=== PATIENT | male | born 1930 | race Caucasian/White ===

== ENCOUNTER → 2016-11-04 | Outpatient (CLI) | payer MEDICARE ==
[~2016-11-04] MED LIST: ACC200C PO; AMLO5TAB2 PO; ASCO500T20 PO; ASP81TEC PO; CEFP250T2 PO; CHOL200018 PO; CLOP75TA PO; CLOP75TA28 PO; DOXY100C42 PO; HYDR-3583 PO; HYDR-3730 PO; HYDR-3812 PO; HYDR1TAB PO; HYDR1TAB66 PO; ISM60TCR PO; LISI-556 PO; METO-272 PO; METO50TA2 PO; MTP50T PO; MULT-517 PO; MULT-974 PO; OMEG-12 PO; OMG1KC PO; PSYL1WAF3 PO; SIMV10TA3 PO; VITB1TAB PO; WARF4TAB PO; WARF4TAB7 PO; WARF4TAB70 PO; WARF6TAB19 PO; WRF5T PO
--- NOTE | 2016-11-07 07:20 | ECHOCARDIOGRAPHY REPORT ---
DATE OF SERVICE: 11/04/2016 EXAMINATION DATE: 11/04/2016 ATTENDING PHYSICIAN: Dr. Paolo Leach. ORDERING PHYSICIAN: Dr. Paolo Leach. REFERRING PHYSICIAN: Dr. Epps. DIAGNOSIS: Atrial fibrillation, aortic stenosis, cardiomyopathy. FINDINGS: 1. Atrial fibrillation. 2. Left atrial dimensions are enlarged. Left atrial diameter is 4.8 cm. 3. Aortic root dimensions are normal. 4. Left ventricular systolic function is mildly reduced. 5. Left ventricular ejection fraction is 45-50%. 6. No significant LVH is present. 7. There are no significant wall motion abnormalities. 8. There is mild right heart enlargement. There is a pacemaker wire traversing the tricuspid valve into the RV. 9. There is no pericardial effusion. 10. Due to atrial fibrillation, diastolic function was not done. 11. IVC does not appear to collapse. VALVULAR STRUCTURE OF THE HEART: 1. There is moderate pulmonic regurgitation. 2. There seems to be moderate to severe eccentric posteriorly directed mitral regurgitation. 3. Peak velocities are anywhere between 4.72 meters per second to 5.35 meters per second. 4. There is moderate tricuspid regurgitation with RVSP of 19 mmHg. 5. There is mild aortic regurgitation. 6. This patient has history of percutaneous aortic valve. There is mild gradient across the percutaneous valve with max gradient of 9.5 mmHg and mean gradient of 5.12 mmHg. CONCLUSION: 1. Mildly reduced LV systolic function with an EF of 45-50%. 2. There are no wall motion abnormalities. 3. Left atrial enlargement is noted. 4. There is right heart enlargement with a pacemaker lead. 5. IVC is enlarged with diameter of 3 cm which suggests increased right atrial pressure. 6. Moderate to severe mitral regurgitation which is eccentric and posteriorly directed. The eccentric nature of the mitral regurgitation may underestimate the severity of mitral regurgitation. 7. Moderate tricuspid regurgitation with no significant pulmonary hypertension. 8. History of percutaneous aortic valve with no significant gradient across the valve with only mild perivalvular aortic regurgitation. Job ID: [id number] DocumentID: [id number] Dictated Date: 11/05/2016 12:48:20 Continuity Person Date: 11/05/2016 13:33:09 Dictated By: PAOLO LEACH MD
== END ==
LOC: CARD 08:15
PROVIDERS: ATTEND Internal Medicine Interventional Cardiology
DX: I48.91 Unspecified atrial fibrillation (principal); I35.0 Nonrheumatic aortic (valve) stenosis; R55 Syncope and collapse
CPT/HCPCS: 93306

== ENCOUNTER 2016-11-12 09:46 | Outpatient (RCR) | payer MEDICARE ==
[~2016-11-12 09:46] MED LIST changes: +METO-370 PO
[2017-05-22] MEDS ORDERED: LISI2.5T PO (13:44)
[2017-05-22] MEDS ORDERED: ASPI-999 PO (13:44)
[2017-05-22] MEDS ORDERED: AMLO5TAB2 PO (13:44)
[2017-05-22] MEDS ORDERED: ISM60TCR PO (13:44)
[2017-05-22] MEDS ORDERED: SIMV10TA3 PO (13:44)
[2017-05-22] MEDS ORDERED: RIVA20TA PO (13:44)
== END 2017-02-10 | disposition home or self-care (01) ==
LOC: CARD 09:46
PROVIDERS: ATTEND Internal Medicine
DX: R55 Syncope and collapse (principal)
CPT/HCPCS: 93225; 93226

== ENCOUNTER → 2016-12-10 | Outpatient (CLI) | payer MEDICARE ==
[~2016-12-10] MED LIST changes: -METO-370 PO
--- NOTE | 2016-12-11 18:17 | ECHOCARDIOGRAPHY REPORT ---
DATE OF SERVICE: 12/10/2016 TWO DIMENSIONAL ECHOCARDIOGRAM PRIMARY PHYSICIAN: Dr. Edilberto Epps. DIAGNOSES: Atrial fibrillation, aortic stenosis. FINDINGS: 1. Sinus rhythm. 2. Left atrial dimensions are enlarged. Left atrial diameter is 5.2 cm. 3. Aortic root dimensions are normal. 4. Left ventricular systolic function is preserved. Left ventricular ejection fraction is 60%. Mild concentric LVH is present. Diastolic interventricular septal diameter is 1.3 cm. 5. There are no wall motion abnormalities. 6. Right heart size and function is normal. Possible RV lead is noted. 7. There is no evidence of pericardial effusion. 8. Complete diastolic evaluation was not performed. 9. IVC is dilated with a diameter of 2.7 cm. VALVULAR STRUCTURE OF THE HEART: There is mild tricuspid regurgitation. There is mild to moderate mitral regurgitation. There is at least mild pulmonic insufficiency. There is mild aortic insufficiency. The aortic prosthesis is well seated with no aortic stenosis. CONCLUSION: 1. Left ventricular and right ventricular size and function is normal. 2. Left ventricular ejection function is 60%. 3. Aortic prosthesis is well seated with no aortic stenosis. 4. There is mild to moderate mitral regurgitation. 5. IVC is dilated, which may suggest increased right atrial pressure. 6. There is left atrial enlargement and left ventricular hypertrophy. The RV lead is noted in the RV. Job ID: [id number] DocumentID: [id number] Dictated Date: 12/11/2016 14:40:15 Scraper Meat Date: 12/11/2016 15:10:33 Dictated By: JUAN CARLOS SQUIRES MD
== END ==
LOC: CARD 11:54
PROVIDERS: ATTEND Internal Medicine Interventional Cardiology
DX: I48.91 Unspecified atrial fibrillation (principal); I35.0 Nonrheumatic aortic (valve) stenosis; R55 Syncope and collapse
CPT/HCPCS: 93306

== ENCOUNTER 2017-01-12 09:59 | Outpatient (RCR) | payer MEDICARE | END 2017-01-13 | disposition home or self-care (01) | LOC: CR 09:59 | PROVIDERS: ATTEND Internal Medicine | DX: Z09 Encounter for follow-up examination after completed treatment for conditions other than malignant neoplasm (principal); I25.2 Old myocardial infarction; Z95.2 Presence of prosthetic heart valve | CPT/HCPCS: 93798 ==

== ENCOUNTER 2017-02-20 10:25 | Outpatient (RCR) | payer MEDICARE ==
[~2017-02-20 10:25] MED LIST changes: +METO-370 PO
[2017-05-22] MEDS ORDERED: SIMV10TA3 PO (13:44)
[2017-05-22] MEDS ORDERED: ASPI-999 PO (13:44)
[2017-05-22] MEDS ORDERED: RIVA20TA PO (13:44)
[2017-05-22] MEDS ORDERED: ISM60TCR PO (13:44)
[2017-05-22] MEDS ORDERED: AMLO5TAB2 PO (13:44)
[2017-05-22] MEDS ORDERED: LISI2.5T PO (13:44)
== END 2017-02-21 11:00 | disposition home or self-care (01) ==
LOC: CR 10:25
PROVIDERS: ATTEND Internal Medicine
DX: Z09 Encounter for follow-up examination after completed treatment for conditions other than malignant neoplasm (principal); I25.2 Old myocardial infarction; Z95.2 Presence of prosthetic heart valve
CPT/HCPCS: 93798

== ENCOUNTER → 2017-08-11 | Outpatient (CLI) | payer MEDICARE ==
[~2017-08-11] MED LIST changes: +ACHD5005 PO; +ASPI-999 PO; -HYDR-3812 PO; +LISI2.5T PO; +METAMUCIL FIBE1 EACH PO; +METO50TA15 PO; -PSYL1WAF3 PO; +RIVA20TA PO
[2017-08-11 11:49] LABS: ABG BASE EXCESS 0.2 MMOL/L (-2.5-2.5); ABG OXYGEN SATURATION 98 % (94-100); ABG PCO2 35 MMHG (35-45); ABG PH 7.45 (7.37-7.43); ABG PO2 86 MMHG (79-93); ALLENS TEST POSITIVE; PATIENT TEMP 97.3; VENTILATOR NO
== END ==
LOC: LAB 11:10
PROVIDERS: ATTEND Nurse Practitioner Family
DX: G47.33 Obstructive sleep apnea (adult) (pediatric) (principal); R06.81 Apnea, not elsewhere classified
CPT/HCPCS: 82805

== ENCOUNTER 2017-08-17 20:48 | Outpatient (CLI) | payer MEDICARE | END 2017-08-18 06:10 | disposition home or self-care (01) | LOC: SLEEP 20:48 | PROVIDERS: ATTEND Nurse Practitioner Family | DX: G47.33 Obstructive sleep apnea (adult) (pediatric) (principal) | CPT/HCPCS: 95811 ==

== ENCOUNTER → 2017-10-26 | Outpatient (CLI) | payer MEDICARE ==
[~2017-10-26] VITALS: Ht 185.4 cm; Wt 93.4 kg
[~2017-10-26] MED LIST changes: +CATHETER FLUSH 10 ML SYR IV PRN; +REGADENOSON 0.4 MG/5 ML SYR (LEXISCAN) IV ONE
[2017-10-26 12:03] VITALS: BP 135/74
[2017-10-26 12:12] VITALS: BP 148/81
[2017-10-26 13:46] VITALS: BP 144/78
--- NOTE | 2017-10-26 13:46 | Cardiology Stress Test Report ---
Stress Test Report Type of NM Stress Test: Test Type: LEXISCAN 0.4MG/5ML Date of Procedure/Referring: Date of Procedure: Oct 26, 2017 PCP Rui Leach MD Admitting Physician Edilberto Epps DO Indications: recurrent chest pain, previous history of PCI and severe CAD. Baseline Heart Rate: 61 Baseline Blood Pressure: Blood Pressure Systolic: 144 Blood Pressure Diastolic: 78 Baseline EKG: Baseline EKG: Atrial fibrillation with ventricular paced rhythm. Summary: the patient was brought to the stress lab of informed consent was taken. Lexiscan stress test was done according to the protocol. 0.4 mg of IV Lexiscan was given. Low-grade exercise was performed. Baseline EKG showed atrial fibrillation with ventricular paced rhythm. Heart rate was 61 bpm and blood pressure was 144/78 mmHg. Maximum heart rate was 83 bpm and blood pressure was 148/81 mmHg. The patient did not complain of any chest pain, EKG changes or arrhythmias during the stress test. 10.34 mCi of Myoview was given for rest imaging and 32.4 mCi of Myoview was given for stress imaging. Transient ischemic dilatation score is 1.18. EF is 47 percent. Normal wall motion. Small apical fixed defect. Intermediate size apical reversible defect. Intermediate size inferior lateral reversible defect. SSS 9, SRS 4, SDS 5. Conclusion: pharmacological stress test is nonconclusive due to ventricular paced rhythm. Borderline low LV function with no wall motion abnormalities. 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 Possible ischemia in the inferior lateral territory. Coronary angiography is recommended. Rui LEACH MD Oct 26, 2017 1:46 pm
== END ==
LOC: CARD 10:51
PROVIDERS: ATTEND Internal Medicine Interventional Cardiology
DX: I48.91 Unspecified atrial fibrillation (principal); I35.0 Nonrheumatic aortic (valve) stenosis; R07.9 Chest pain, unspecified; R42 Dizziness and giddiness; I25.10 Atherosclerotic heart disease of native coronary artery without angina pectoris
CPT/HCPCS: 78452; 93017

== ENCOUNTER 2017-10-29 08:01 | Day surgery (SDC) | payer MEDICARE ==
[2017-10-29] VITALS (14 sets, daily range): BP systolic 124–159; BP diastolic 70–89
[~2017-10-29] VITALS: Ht 185.4 cm; Wt 93.4 kg
[~2017-10-29 08:01] MED LIST changes: -CATHETER FLUSH 10 ML SYR IV PRN; -REGADENOSON 0.4 MG/5 ML SYR (LEXISCAN) IV ONE
[2017-10-29] MEDS ORDERED: HEParin (CATH LAB) 2,000 ML IV ONE (08:04)
[2017-10-29] MEDS ORDERED: NS IV 1000 ML 1,000 ML ONE (08:04)
[2017-10-29] MEDS ORDERED: NS IV 1000 ML 1,000 ML IV SCH ×2 (08:15→11:33)
[2017-10-29 08:37] LABS: HEMOGLOBIN 13.9 G/DL (13.3-17.7); MEAN PLATELET VOLUME 11.1 FL (7.4-10.4); RED BLOOD COUNT 4.27 10^6/uL (4.35-5.85); RED CELL DISTRIBUTION WIDTH 13.4 % (10.0-14.5); WHITE BLOOD COUNT 4.8 10^3/uL (4.3-11.0)
[2017-10-29 08:48] LABS: INR 2.2 (0.8-1.4); PROTHROMBIN TIME PATIENT 24.2 SEC (12.2-14.7)
[2017-10-29 08:59] LABS: ALANINE AMINOTRANSFERASE 25 U/L (0-55); ALBUMIN 4.3 GM/DL (3.2-4.5); ALKALINE PHOSPHATASE 49 U/L (40-136); BILIRUBIN,TOTAL 1.5 MG/DL (0.1-1.0); BUN/CREATININE RATIO 17; CALCIUM 9.5 MG/DL (8.5-10.1); CARBON DIOXIDE 25 MMOL/L (21-32); CHLORIDE 108 MMOL/L (98-107); GFR ESTIMATED > 60; GLUCOSE 100 MG/DL (70-105); POTASSIUM 3.9 MMOL/L (3.6-5.0); SODIUM 140 MMOL/L (135-145); TOTAL PROTEIN 6.9 GM/DL (6.4-8.2)
[2017-10-29] MEDS ORDERED: fentaNYL INJECTION 100 MCG/2 ML AMP ONE (09:29)
[2017-10-29] MEDS ORDERED: MIDAZOLAM 5 MG/5 ML (VERSED) VIAL ONE (09:29)
[2017-10-29] MEDS ORDERED: LIDOCAINE 1% INJ 50 ML (XYLOCAINE) VIAL ONE (09:29)
[2017-10-29] MEDS ORDERED: VERAPAMIL 5 MG/2 ML (CALAN) VIAL IV ONE (09:29)
[2017-10-29] MEDS ORDERED: NITRO DRIP 25000 MCG/D5W 250 ML IV ONE (09:29)
[2017-10-29] MEDS ORDERED: HEParin 1000 UNIT/ML (10ML VIAL) FOR BOLUS ONE (09:29)
--- NOTE | 2017-10-29 11:20 | Cardiac Procedure Note-CS/ASA ---
Pre-Procedure Note Pre-Op Procedure Note H&P Reviewed The H&P was reviewed, patient examined and no changes noted. Date H&P Reviewed: Oct 29, 2017 Time H&P Reviewed: 09:30 Conscious Sedation Pre-Proced Time Reviewed: 09:30 ASA Class: 3 Airway Mallampati Classification: ([place] ira appropriate class) I. II. III, IV Lungs Heart ASA score ASA 1: a normal healthy patient ASA 2: a patient with a mild systemic disease (mid diabetes, controlled hypertension, obesity ASA 3: a patient with a severe systemic disease that limits activity (angina , COPD, prior Myocardial infarction) ASA 4: a patient with an incapacitating disease that is a constant threat to life (CHF, renal failure) ASA 5: a moribund patient not expected to survive 24 hrs. (ruptured aneurysm) ASA 6: a declared brain patient whose organs are being harvested. For emergent operations, add the letter E after the classification Grade 1 Sedation Plan: Analgesia, Amnesia, Plan communicated to team members, Discussed options with patient/fam, Discussed risks with patient/fam Note The patient is an appropriate candidate to undergo the planned procedure, sedation, and anesthesia. The patient immediately re-assessed prior to indication. Rui SQUIRES MD Oct 29, 2017 11:20 am
--- NOTE | 2017-10-29 11:27 | Coronary Angiography Report ---
Coronary Angiography Report DATE OF PROCEDURE: 10/29/17 INDICATION: recurrent chest pain, abnormal nuclear stress test, previous history of [place] and PCI to RCA. PREOPERATIVE DIAGNOSIS: recurrent chest pain, abnormal nuclear stress test, previous history of WI and PCI to RCA. POSTOPERATIVE DIAGNOSIS: severe disease in the LAD and left circumflex artery. Patent stent in the RCA. HISTORY: this is a 86-year-old gentleman who has a previous history of permanent pacemaker and chronic atrial fibrillation. He is pacemaker dependent. He presented previously in June 2016 with acute WI and was found to have an occluded mid/distal RCA which was treated with a bare metal stent with excellent results. He also had significant mid to distal diffuse LAD disease as well as proximal occlusion of left circumflex artery with reconstitution distally. Patient was also found to have severe aortic stenosis and received a core valve TAVR. He did well for the last one year but recently started to complain of recurrent chest tightness. Due to his history and nuclear stress test was performed which showed evidence of apical infarct and inferior lateral ischemia. Positive viability. Therefore, the patient was scheduled for coronary angiography. PROCEDURES PERFORMED: 1.Coronary angiography. 2. Aortic root injection. 3. Aortic arch angiography COMPLICATIONS: None. SPECIMENS: None. ESTIMATED BLOOD LOSS: 10 mL ANESTHESIA: Conscious sedation ANTICOAGULATION: IV heparin CONTRAST: 135 mL. FLUOROSCOPY: 8.8 minutes. FLOUROSCOPY DOSE: 760 mgy. PROCEDURE DETAILS: The patient is a 86 male and was brought to the quality assurance qa lab analyst after informed consent was taken. All the risks and complications were explained in detail; this included the risk of bleeding, vascular damage, stroke , WI and even . The patient was draped and prepped in the usual sterile fashion. Access was gained in the right radial artery with a 6 [place] sheath. Left coronary angiography was performed with the [place] catheter. Right coronary angiography, arch and root injection was performed with a JR4 catheter. The aortic valve was not crossed (TAVR - corevalve). FINDINGS: 1. Left main: Mild distal disease. 2. LAD: Diffuse disease of the LAD is noted. The LAD is heavily calcified. There is mild to moderate disease in the proximal and midsegment. There is a good size diagonal artery, which has mild diffuse disease but there is no significant stenosis. The distal LAD has severe diffuse disease. The vessel size is less than 1.5 mm diameter. 3. Left circumflex artery: Left circumflex artery is totally occluded in the proximal to mid segment. There is distal reconstitution of at least two OM arteries. However, the diameter is less than 1.5 mm. This could be either due to underfilling or may be the actual size. The left circumflex artery is heavily calcified. 4. RCA: Heavily calcified RCA with patent stent in the mid/RCA with patent branches distally. 5. aortic root injection: Normally functioning Core valve. Patent ostia of RCA and LM. 6. Aortic arch angiography: No evidence of dissection or aneurysm. Patent proximal segments of the great arteries including brachiocephalic artery, left common carotid artery, left subclavian artery. CONCLUSIONS: 1. Patent RCA stent. The RCA and distal branches are similar to the angiogram after PCI in 06/2016. 2. Occluded LCX with distal reconstitution of OM1 and OM2. Supplied by left to left collaterals. LAD was diffuse disease too. Both could be the cause of recurrent chest pain. I will get the opinion about high risk SMELLER PCI to LCX by Dr Dey at . . Edin Squires MD, FACP, FACC, [facility] Interventional Cardiology uRi SQUIRES MD Oct 29, 2017 11:27 am
--- NOTE | 2017-10-29 11:35 | Discharge Inst-Post CATH ---
Discharge Inst-CATH Post Cardiac Cath D/C Inst Follow Up/Plan Dr. Leach in 2-3 weeks CARDIAC CATH DISCHARGE INSTRUCTIONS *Hold Metformin for 48 hours post heart cath. ACTIVITY * Go Home directly and rest. * Limit activity of the leg (or wrist if it was used) for 7 days including aerobics, swimming, jogging, bicycling, etc. * Restrict stair-climbing for 7 days if possible, if not, climb up with your non -cath leg, then bring together on the same step. * Avoid lifting, pushing, pulling or excessive movement of the affected extremity for 7 days. * Customary sexual activity may be resumed after 2 days-use caution not to use a position that strains or causes pain to the affected extremity. * No driving for 24 hours. * NO SMOKING. * Avoid straining for bowel movements for 7 days. * Gentle walking on level ground is allowed. * Returning to work will depend on the type of procedure and the results. Your doctor will discuss this with you. CALL YOUR DOCTOR FOR ANY OF THE FOLLOWING: *If bleeding from the puncture site occurs- Apply gentle pressure to site with clean cloth and call your doctor or EMS. * If a knot or lump forms under the skin, increases in size, or causes pain. * If bruising appears to be worsening or moving further down your leg instead of disappearing. * Temperature above 101 F. CARE OF YOUR GROIN INCISION; * Bruising or purple discoloration of the skin near the puncture site is common. * You may shower only, no bathtub bathing for 5 days. Be careful to avoid slipping as your leg may feel stiff. * If a closure device was used on your femoral artery, please see the attached guide regarding care of the device and your leg. * REMOVE the dressing from your groin the next day after your procedure in the shower. CARE OF YOUR WRIST INCISION; * Bruising or purple discoloration of the skin near the puncture site is common. * You may shower. * DO NOT submerge wrist. * Remove dressing in 24 hours. Rui LEACH MD Oct 29, 2017 11:35 am
--- NOTE | 2017-10-29 11:38 | Cardiology Discharge Summary ---
Diagnosis/Chief Complaint Date of Admission 10/29/2017 Date of Discharge 10/29/2017 Admission Diagnosis recurrent chest pain, abnormal nuclear stress test, previous history of [place] and PCI to the RCA Final/Discharge Diagnosis patent stent in the RCA. Occluded left circumflex artery. Severe diffuse disease in the LAD Chief Complaint/HPI Chief Complaint/HPI this is a 86-year-old gentleman who has a previous history of permanent pacemaker and chronic atrial fibrillation. He is pacemaker dependent. He presented previously in June 2016 with acute [place] and was found to have an occluded mid/distal RCA which was treated with a bare metal stent with excellent results. He also had significant mid to distal diffuse LAD disease as well as proximal occlusion of left circumflex artery with reconstitution distally. Patient was also found to have severe aortic stenosis and received a core valve TAVR. He did well for the last one year but recently started to complain of recurrent chest tightness. Due to his history and nuclear stress test was performed which showed evidence of apical infarct and inferior lateral ischemia. Positive viability. Therefore, the patient was scheduled for coronary angiography. Discharge Summary Procedures coronary angiography shows patent stent in the RCA and patent distal vessels. Occluded proximal and midsegment of the left circumflex artery with reconstitution of 2 OM branches. Left left collaterals. Diffuse severe distal disease in the LAD. Small caliber artery. Discharge Physical Examination normal cardiovascular and respiratory examination. Hospital Course unremarkable. Pending Labs Laboratory Tests 10/29/17 08:30: White Blood Count 4.8, Red Blood Count 4.27, Hemoglobin 13.9, Hematocrit 40, Mean Corpuscular Volume 94, Mean Corpuscular Hemoglobin 33, Mean Corpuscular Hemoglobin Concent 35, Red Cell Distribution Width 13.4, Platelet Count 134, Mean Platelet Volume 11.1, Prothrombin Time 24.2, INR Comment 2.2, Activated Partial Thromboplast Time 40, Sodium Level 140, Potassium Level 3.9, Chloride Level 108, Carbon Dioxide Level 25, Anion Gap 7, Blood Urea Nitrogen 15, Creatinine 0.90, Estimat Glomerular Filtration Rate > 60, BUN/Creatinine Ratio 17, Glucose Level 100, Calcium Level 9.5, Total Bilirubin 1.5, Aspartate Amino Transf (AST/SGOT) 26, Alanine Aminotransferase (ALT/SGPT) 25, Alkaline Phosphatase 49, Total Protein 6.9, Albumin 4.3 Discussion & Recommendations Discussion discharge instructions as to the patient and family. I will discuss coronary angiography results were Dr. Branch at for possible high risk left circumflex artery [employer]ED [employer]ERTIES DIRECTOR PCI. Continue medical therapy. Follow up appt.: Dr. Leach in 2-3 weeks. Dicharge Diet: Cardiac Diet Activity as Tolerated: Yes Home Medications Reviewed patient Home Medication Reconciliation performed by pharmacy medication reconciliations zone maintenance technician and/or nursing. Patients Allergies have been reviewed. Discharge Home Medications: Reviewed and agree with Discharge Medication list on patient's Discharge Instruction sheet Condition at discharge stable. Instructions to patient/family Dr. Leach in 2-3 weeks Rui LEACH MD Oct 29, 2017 11:38
[2017-10-29] MEDS ORDERED: PATIENT MAY USE OWN MEDS, ALL PO SCH (11:45)
--- OUTSIDE RECORDS SUMMARY | 2017-10-29 13:00 | XMS REPORT | Continuity of Care Document ---
Author Author [facility] Organization [facility] Address Unknown Phone Unavailable Allergies Active Description Code Type Severity Reaction Onset Reported/Identified Relationship to Patient Clinical Status Yes No Known Drug Allergies [id number] Drug Allergy Unknown N/A 04/12/2010 Medications There is no data. Problems Date Dx Coded Attending Type Code Diagnosis Diagnosed By 06/18/1099 LUIS M GEORGES DO, Ot I25.2 OLD MYOCARDIAL INFARCTION 06/18/1099 LUIS M GEORGES DO Ot Z09 ENCNTR FOR F/U EXAM AFT TRTMT FOR COND O 06/18/1099 LUIS M GEORGES DO Ot Z95.2 PRESENCE OF PROSTHETIC HEART VALVE 01/31/2012 Ot 709.9 SKIN DISORDER NOS 01/31/2012 Ot V58.63 LONG-TERM( CURRENT)USE OF ANTIPLATELET/AN 10/02/2012 Ot 592.1 CALCULUS OF URETER 10/02/2012 Ot 789.09 ABDOMINAL PAIN, OTHER SPECIFIED SITE 10/02/2012 Ot V58.61 ANTICOAGULANTS,LT,CURRENT USE 10/02/2012 Ot V58.69 OTH MED,LT, CURRENT USE 10/07/2012 Ot 272.4 HYPERLIPIDEMIA NEC/NOS 10/07/2012 Ot 401.9 HYPERTENSION NOS 10/07/2012 Ot 414.01 CORONARY ATHEROSCLEROSIS OF [place] CORON 10/07/2012 Ot 564.00 UNSPEC CONSTIPATION 10/07/2012 Ot 591 HYDRONEPHROSIS 10/07/2012 Ot 592.1 CALCULUS OF URETER 10/07/2012 Ot 722.52 LUMB/ LUMBOSAC DISC DEGEN 10/07/2012 Ot V45.01 CARDIAC PACEMAKER IN SITU 02/22/2014 TAWANNA GUILLORY, MARIELOS Fabian Ot 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 02/22/2014 TAWANNA GUILLORY, MARIELOS Fabian Ot 455.3 EXT HEMORRHOID W/O COMPL 02/22/2014 TAWANNA GUILLORY, MARIELOS Fabian Ot 562.10 DIVERTICULOSIS COLON (W/O MENT OF HEMORR 02/22/2014 TAWANNA GUILLORY, MARIELOS Fabian Ot 569.3 RECTAL ANAL HEMORRHAGE 02/22/2014 TAWANNA GUILLORY, MARIELOS Fabian Ot V12.72 PERSONAL HISTORY OF COLONIC POLYPS 08/18/2014 LUIS M GEORGES DO Ot 724.00 09/12/2014 LUIS M GEORGES DO Ot 724.00 09/14/2014 LUIS M GEORGES DO Ot 724.00 12/25/2014 LUIS M GEORGES DO Ot 054.9 HERPES SIMPLEX NOS 12/25/2014 LUIS M GEORGES DO Ot 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 12/25/2014 LUIS M GEORGES DO Ot 272.4 HYPERLIPIDEMIA NEC/NOS 12/25/2014 LUIS M GEORGES DO Ot 287.5 THROMBOCYTOPENIA NOS 12/25/2014 LUIS M GEORGES DO Ot 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 12/25/2014 LUIS M GEORGES DO Ot 401.9 HYPERTENSION NOS 12/25/2014 LUIS M GEORGES DO Ot 414.01 CORONARY ATHEROSCLEROSIS OF [place] CORON 12/25/2014 LUIS M GEORGES DO Ot 427.31 ATRIAL FIBRILLATION 12/25/2014 LUIS M GEORGES DO Ot 427.81 SINOATRIAL NODE DYSFUNCT 12/25/2014 LUIS M GEORGES DO Ot 682.6 CELLULITIS OF LEG 12/25/2014 LUIS M GEORGES DO Ot 721.3 LUMBOSACRAL SPONDYLOSIS 12/25/2014 LUIS M GEORGES DO Ot V10.46 HX-PROSTATIC MALIGNANCY 12/25/2014 LUIS M GEORGES DO, Ot V45.01 CARDIAC PACEMAKER IN SITU 12/25/2014 LUIS M GEORGES DO, Ot V58.61 ANTICOAGULANTS,LT,CURRENT USE 12/26/2014 ARSENIO GEORGES MECHANICAL PLANNER Ot 729.1 12/26/2014 ARSENIO GEORGES MECHANICAL PLANNER Ot 729.5 12/26/2014 ARSENIO GEORGES MECHANICAL PLANNER Ot 780.60 12/26/2014 ARSENIO GEORGES MECHANICAL PLANNER Ot 919.4 12/26/2014 ARSENIO GEORGES MECHANICAL PLANNER Ot E000.8 12/26/2014 ARSENIO GEORGES MECHANICAL PLANNER Ot E906.4 01/12/2015 DESTINIARSENIO MECHANICAL PLANNER Ot 729.1 01/12/2015 DESTINI ARSENIO More MECHANICAL PLANNER Ot 729.5 01/12/2015 DESTINI ARSENIO More MECHANICAL PLANNER Ot 780.60 01/12/2015 DESTINI ARSENIO More MECHANICAL PLANNER Ot 919.4 01/12/2015 DESTINI ARSENIO More MECHANICAL PLANNER Ot E000.8 01/12/2015 DESTINI ARSENIO More MECHANICAL PLANNER Ot E906.4 01/23/2015 DESTINI ARSENIO More MECHANICAL PLANNER Ot 729.1 01/23/2015 DESTINI ARSENIO More MECHANICAL PLANNER Ot 729.5 01/23/2015 DESTINI ARSENIO More MECHANICAL PLANNER Ot 780.60 01/23/2015 DESTINI ARSENIO More MECHANICAL PLANNER Ot 919.4 01/23/2015 DESTINI ARSENIO More MECHANICAL PLANNER Ot E000.8 01/23/2015 DESTINI ARSENIO More MECHANICAL PLANNER Ot E906.4 03/08/2015 LUIS M GEORGES DO Ot 327.23 OBSTRUCTIVE SLEEP APNEA (ADULT) (PEDIATR 08/17/2015 LUIS M GEORGES DO Ot S30.0XXA 08/17/2015 GEORGESLUIS M GONZALES DO Ot W19.XXXA 08/17/2015 GEORGESLUIS M GONZALES DO Ot Y99.8 09/04/2015 GEORGESLUIS M GONZALES DO Ot S39.92XA 09/04/2015 GEORGESLUIS M GONZALES DO Ot W00.9XXA 09/04/2015 GEORGES LUIS M SEXTON Ot Y99.8 09/04/2015 GEORGESLUIS M GONZALES DO Ot S30.0XXA 09/04/2015 GEORGESLUIS M GONAZLES DO Ot W19.XXXA 09/04/2015 GEORGESLUIS M GONZALES DO Ot Y99.8 09/14/2015 GEORGESLUIS M GONZALES DO Ot S39.92XA 09/14/2015 GEORGESLUIS M GONZALES DO Ot W00.9XXA 09/14/2015 LUIS M GEORGES DO Ot Y99.8 09/14/2015 GEORGESLUIS M GONZALES DO Ot S30.0XXA 09/14/2015 DESTINI SEXTON LUIS M Elle Ot W19.XXXA 09/14/2015 GEORGES DO LUIS M Almeida Ot Y99.8 11/01/2015 GEORGES DO, LUIS M Almeida Ot R22.1 11/01/2015 GEORGES DO LUIS M Alemida Ot R22.1 11/21/2015 DESTINI SEXTON LUIS M Almeida Ot R22.1 LOCALIZED SWELLING, MASS AND LUMP, NECK 11/28/2015 DESTINI SEXTON LUIS M Elle Ot R22.1 LOCALIZED SWELLING, MASS AND LUMP, NECK 12/03/2015 PHU MATHUR MD, Ot R22.1 LOCALIZED SWELLING, MASS AND LUMP, NECK 12/03/2015 PHU MATHUR MD, Ot Z01.818 ENCOUNTER FOR OTHER PREPROCEDURAL EXAMIN 12/03/2015 PHU MATHUR MD, Ot Z11.2 ENCOUNTER FOR SCREENING FOR OTHER BACTER 12/06/2015 PHU MATHUR MD Ot I48.91 UNSPECIFIED ATRIAL FIBRILLATION 12/06/2015 PHU MATHUR MD Ot K11.23 CHRONIC SIALOADENITIS 12/06/2015 PHU MATHUR MD Ot Z79.01 SENIOR CARE (CURRENT) USE OF ANTICOAGULANT 12/11/2015 PHU MATHUR MD Ot I48.91 UNSPECIFIED ATRIAL FIBRILLATION 12/11/2015 PHU MATHUR MD Ot K11.23 CHRONIC SIALOADENITIS 12/11/2015 PHU MATHUR MD Ot Z79.01 COST CONTROL ANALYST (CURRENT) USE OF ANTICOAGULANT 12/11/2015 PHU MATHUR MD Ot I48.91 UNSPECIFIED ATRIAL FIBRILLATION 12/11/2015 PHU MATHUR MD Ot K11.23 CHRONIC SIALOADENITIS 12/11/2015 PHU MATHUR MD Ot Z79.01 COST CONTROL ANALYST (CURRENT) USE OF ANTICOAGULANT 12/21/2015 PHU MATHUR MD Ot I48.91 UNSPECIFIED ATRIAL FIBRILLATION 12/21/2015 PHU MATHUR MD, Ot K11.23 CHRONIC SIALOADENITIS 12/21/2015 PHU MATHUR MD Ot Z79.01 SENIOR CARE (CURRENT) USE OF ANTICOAGULANT 07/05/2016 Ot 592.1 CALCULUS OF URETER 07/05/2016 GEORGES, ARSENIO L MECHANICAL PLANNER Ot 719.07 JOINT EFFUSION-ANKLE 07/05/2016 GEORGESARSENIO GONZALES MECHANICAL PLANNER Ot 719.47 JOINT PAIN-ANKLE 07/05/2016 ARSENIO GEORGES MECHANICAL PLANNER Ot E000.8 OTHER EXTERNAL CAUSE STATUS 07/05/2016 ARSENIO GEORGES MECHANICAL PLANNER Ot E849.0 ACCIDENT IN HOME 07/05/2016 GEORGESARSENIO GONZALES MECHANICAL PLANNER Ot E927.0 OVEREXERTION FROM SUDDEN STRENUOUS MOVEM 07/05/2016 TAWANNA GUILLORY, MARIELOS Fabian Ot V72.84 EXAM PRE-OPERATIVE NOS 07/05/2016 LUIS M GEORGES DO Ot 724.00 SPINAL STENOSIS NOS 07/05/2016 DESTINI ARSENIO Derik MECHANICAL PLANNER Ot 729.1 MYALGIA AND MYOSITIS NOS 07/05/2016 DESTINIARSENIO Derik MECHANICAL PLANNER Ot 729.5 PAIN IN LIMB 07/05/2016 DESTINIARSENIO MECHANICAL PLANNER Ot 780.60 FEVER, UNSPECIFIED 07/05/2016 DESTINIAIDAARSENIO Derik MECHANICAL PLANNER Ot 919.4 INSECT BITE NEC 07/05/2016 DESTINIARSENIO Derik MECHANICAL PLANNER Ot E000.8 OTHER EXTERNAL CAUSE STATUS 07/05/2016 DESTINIARSENIO MECHANICAL PLANNER Ot E906.4 NONVENOM ARTHROPOD BITE 07/05/2016 LUIS M GEORGES DO Ot S39.92XA UNSPECIFIED INJURY OF LOWER BACK, INITIA 07/05/2016 LUIS M GEORGES DO Ot W00.9XXA UNSPECIFIED FALL DUE TO ICE AND SNOW, IN 07/05/2016 LUIS M GEORGES DO Ot Y99.8 OTHER EXTERNAL CAUSE STATUS 07/05/2016 LUIS M GEORGES DO Ot S30.0XXA CONTUSION OF LOWER BACK AND PELVIS, INIT 07/05/2016 LUIS M GEORGES DO Ot W19.XXXA UNSPECIFIED FALL, INITIAL ENCOUNTER 07/05/2016 LUIS M GEORGES DO Ot Y99.8 OTHER EXTERNAL CAUSE STATUS 07/05/2016 LUIS M GEORGES DO Ot R22.1 LOCALIZED SWELLING, MASS AND LUMP, NECK 07/05/2016 CHRISTIANA ALTAMIRANO DO, Ot C61 MALIGNANT NEOPLASM OF PROSTATE 07/05/2016 ADARSH DO, CHRISTIANA K Ot I10 ESSENTIAL (PRIMARY) HYPERTENSION 07/05/2016 CHRISTIANA ALTAMIRANO DO K Ot I25.10 ATHSCL HEART DISEASE OF [place] CORONARY 07/05/2016 CHRISTIANA ALTAMIRANO DO Ot I48.2 CHRONIC ATRIAL FIBRILLATION 07/05/2016 CHRISTIANA ALTAMIRANO DO Ot R31.9 HEMATURIA, UNSPECIFIED 07/05/2016 CHRISTIANA ALTAMIRANO DO Ot T83.098A [facility] COMPL OF OTHER URINARY CATHETER, IN 07/05/2016 CHRISTIANA ALTAMIRANO DO K Ot Z79.82 COST CONTROL ANALYST (CURRENT) USE OF ASPIRIN 07/05/2016 MIYA ALTAMIRANO DOA K Ot Z79.899 OTHER COST CONTROL ANALYST (CURRENT) DRUG THERAPY 07/05/2016 CHRISTIANA ALTAMIRANO DO K Ot Z95.0 PRESENCE OF CARDIAC PACEMAKER 07/05/2016 MIYA ALTAMIRANO DOA K Ot Z95.5 PRESENCE OF CORONARY ANGIOPLASTY IMPLANT 07/17/2016 CHRISTIANA ALTAMIRANO DO K Ot I10 ESSENTIAL (PRIMARY) HYPERTENSION 07/17/2016 CHRISTIANA ALTAMIRANO DO Ot R06.02 SHORTNESS OF BREATH 07/17/2016 CHRISTIANA ALTAMIRANO DO K Ot R07.9 CHEST PAIN, UNSPECIFIED 07/17/2016 CHRISTIANA ALTAMIRANO DO Ot R61 GENERALIZED HYPERHIDROSIS 07/17/2016 CHRISTIANA ALTAMIRANO DO Ot Z79.01 SENIOR CARE (CURRENT) USE OF ANTICOAGULANT 07/17/2016 MIYA ALTAMIRANO DOA K Ot Z79.82 SENIOR CARE (CURRENT) USE OF ASPIRIN 07/17/2016 MIYA ALTAMIRANO DOA K Ot Z79.899 OTHER SENIOR CARE (CURRENT) DRUG THERAPY 07/17/2016 MIYA ALTAMIRANO DOA K Ot Z95.0 PRESENCE OF CARDIAC PACEMAKER 07/18/2016 SHAW GUILLORY, Rui ZAMORANO Ot 111 07/18/2016 SHAW GUILLORY, Rui ZAMORANO Ot 111 07/18/2016 SHAW GUILLORY, Rui ZAMORANO Ot 111 07/19/2016 SHAW GUILLORY, Rui ZAMORANO Ot 111 07/19/2016 SHAW GUILLORY, Rui ZAMORANO Ot 111 07/19/2016 SHAW GUILLORY, Rui ZAMORANO Ot I21.3 ST ELEVATION (STEMI) MYOCARDIAL INFARCTI 07/19/2016 SHAW GUILLORY, Rui ZAMORANO Ot I25.10 ATHSCL HEART DISEASE OF [place] CORONARY 07/19/2016 SHAW GUILLORY, Rui ZAMORANO Ot I35.0 NONRHEUMATIC AORTIC (VALVE) STENOSIS 07/19/2016 SHAW GUILLORY, Rui ZAMORANO Ot I48.1 PERSISTENT ATRIAL FIBRILLATION 07/19/2016 SHAW GUILLORY, Rui ZAMORANO Ot Z87.891 PERSONAL HISTORY OF NICOTINE DEPENDENCE 07/28/2016 ADARSH DO CHRISTIANA K Ot C61 MALIGNANT NEOPLASM OF PROSTATE 07/28/2016 ADARSH DO CHRISTIANA K Ot I10 ESSENTIAL (PRIMARY) HYPERTENSION 07/28/2016 ADARSH CHRISTIANA K Ot I25.10 ATHSCL HEART DISEASE OF [place] CORONARY 07/28/2016 ADARSH DO CHRISTIANA K Ot I48.2 CHRONIC ATRIAL FIBRILLATION 07/28/2016 ADARSH DO CHRISTIANA K Ot R31.9 HEMATURIA, UNSPECIFIED 07/28/2016 ADARSH DO CHRISTIANA K Ot T83.098A [facility] COMPL OF OTHER URINARY CATHETER, [place] 07/28/2016 ADARSH DO CHRISTIANA K Ot Z79.82 COST CONTROL ANALYST (CURRENT) USE OF ASPIRIN 07/28/2016 ADARSH DO CHRISTIANA K Ot Z79.899 OTHER COST CONTROL ANALYST (CURRENT) DRUG THERAPY 07/28/2016 ADARSH DO CHRISTIANA K Ot Z95.0 PRESENCE OF CARDIAC PACEMAKER 07/28/2016 ADARSH DO CHRISTIANA K Ot Z95.5 PRESENCE OF CORONARY ANGIOPLASTY IMPLANT 07/31/2016 ADARSH DO CHRISTIANA K Ot I10 ESSENTIAL (PRIMARY) HYPERTENSION 07/31/2016 ADARSH DO CHRISTIANA K Ot R06.02 SHORTNESS OF BREATH 07/31/2016 ADARSH DO CHRISTIANA K Ot R07.9 CHEST PAIN, UNSPECIFIED 07/31/2016 ADARSH DO CHRISTIANA K Ot R61 GENERALIZED HYPERHIDROSIS 07/31/2016 ADARSH DO CHRISTIANA K Ot Z79.01 SENIOR CARE (CURRENT) USE OF ANTICOAGULANT 07/31/2016 ADARSH DO CHRISTIANA K Ot Z79.82 SENIOR CARE (CURRENT) USE OF ASPIRIN 07/31/2016 ADARSH DO CHRISTIANA K Ot Z79.899 OTHER SENIOR CARE (CURRENT) DRUG THERAPY 07/31/2016 ADARSH DO CHRISTIANA K Ot Z95.0 PRESENCE OF CARDIAC PACEMAKER 07/31/2016 ADARSH DO, CHRISTIANA K Ot I10 ESSENTIAL (PRIMARY) HYPERTENSION 07/31/2016 ADARSH DO, CHRISTIANA K Ot R06.02 SHORTNESS OF BREATH 07/31/2016 ADARSH DO, CHRISTIAAN K Ot R07.9 CHEST PAIN, UNSPECIFIED 07/31/2016 ADARSH DO, CHRISTIANA K Ot R61 GENERALIZED HYPERHIDROSIS 07/31/2016 ADASRH DO, CHRISTIANA K Ot Z79.01 SENIOR CARE (CURRENT) USE OF ANTICOAGULANT 07/31/2016 ADARSH DO, CHRISTIANA K Ot Z79.82 COST CONTROL ANALYST (CURRENT) USE OF ASPIRIN 07/31/2016 ADARSH DO, CHRISTIANA K Ot Z79.899 OTHER SENIOR CARE (CURRENT) DRUG THERAPY 07/31/2016 ADARSH DO, CHRISTIANA K Ot Z95.0 PRESENCE OF CARDIAC PACEMAKER 08/02/2016 ADARSH DO, CHRISTIANA K Ot I10 ESSENTIAL (PRIMARY) HYPERTENSION 08/02/2016 ADARSH DO, CHRISTIANA K Ot R06.02 SHORTNESS OF BREATH 08/02/2016 ADARSH DO, CHRISTIANA K Ot R07.9 CHEST PAIN, UNSPECIFIED 08/02/2016 ADARSH DO, CHRISTIANA K Ot R61 GENERALIZED HYPERHIDROSIS 08/02/2016 ADARSH DO, CHRISTIANA K Ot Z79.01 SENIOR CARE (CURRENT) USE OF ANTICOAGULANT 08/02/2016 ADARSH DO, CHRISTIANA K Ot Z79.82 COST CONTROL ANALYST (CURRENT) USE OF ASPIRIN 08/02/2016 ADARSH DO, CHRISTIANA K Ot Z79.899 OTHER COST CONTROL ANALYST (CURRENT) DRUG THERAPY 08/02/2016 ADARSH DO, CHRISTIANA K Ot Z95.0 PRESENCE OF CARDIAC PACEMAKER 09/17/2016 ADARSH DO, CHRISTIANA K Ot I10 ESSENTIAL (PRIMARY) HYPERTENSION 09/17/2016 ADARSH DO, CHRISTIANA K Ot R06.02 SHORTNESS OF BREATH 09/17/2016 ADARSH DO, CHRISTIANA K Ot R07.9 CHEST PAIN, UNSPECIFIED 09/17/2016 ADARSH DO, CHRISTIANA K Ot R61 GENERALIZED HYPERHIDROSIS 09/17/2016 ADARSH DO, CHRISTIANA K Ot Z79.01 COST CONTROL ANALYST (CURRENT) USE OF ANTICOAGULANT 09/17/2016 ADARSH DO, CHRISTIANA K Ot Z79.82 SENIOR CARE (CURRENT) USE OF ASPIRIN 09/17/2016 ADARSH SEXTON CHRISTIANA Alex Ot Z79.899 OTHER SENIOR CARE (CURRENT) DRUG THERAPY 09/17/2016 CHRISTIANA ALTAMIRANO DO Ot Z95.0 PRESENCE OF CARDIAC PACEMAKER 10/16/2016 LUIS M GEORGES DO, Ot I25.2 OLD MYOCARDIAL INFARCTION 10/16/2016 LUIS M GEORGES DO Ot Z09 ENCNTR FOR F/U EXAM AFT TRTMT FOR COND O 10/16/2016 LUIS M GEORGES DO Ot Z95.2 PRESENCE OF PROSTHETIC HEART VALVE 10/18/2016 ADARSH DO CHRISTIANA K Ot I10 ESSENTIAL (PRIMARY) HYPERTENSION 10/18/2016 ADARSH DOMIYAA K Ot R06.02 SHORTNESS OF BREATH 10/18/2016 ADARSH DO CHRISTIANA K Ot R07.9 CHEST PAIN, UNSPECIFIED 10/18/2016 ADARSH DO CHRISTIANA K Ot R61 GENERALIZED HYPERHIDROSIS 10/18/2016 ADARSH DOCHRISTIANA Ot Z79.01 COST CONTROL ANALYST (CURRENT) USE OF ANTICOAGULANT 10/18/2016 ADARSH DO CHRISTIANA K Ot Z79.82 SENIOR CARE (CURRENT) USE OF ASPIRIN 10/18/2016 ADARSH DO CHRISTIANA K Ot Z79.899 OTHER SENIOR CARE (CURRENT) DRUG THERAPY 10/18/2016 ADARSH SEXTON CHRISTIANA Alex Ot Z95.0 PRESENCE OF CARDIAC PACEMAKER 11/11/2016 LUIS M GEORGES DO Ot I25.2 OLD MYOCARDIAL INFARCTION 11/11/2016 LUIS M GEORGES DO Ot Z09 ENCNTR FOR F/U EXAM AFT TRTMT FOR COND O 11/11/2016 LUIS M GEORGES DO Ot Z95.2 PRESENCE OF PROSTHETIC HEART VALVE 11/17/2016 ADARSH DO CHRISTIANA K Ot I10 ESSENTIAL (PRIMARY) HYPERTENSION 11/17/2016 ADARSH DOMIYAA K Ot R06.02 SHORTNESS OF BREATH 11/17/2016 ADARSH DO CHRISTIANA K Ot R07.9 CHEST PAIN, UNSPECIFIED 11/17/2016 ADARSH DO CHRISTIANA K Ot R61 GENERALIZED HYPERHIDROSIS 11/17/2016 ADARSH DO CHRISTIANA K Ot Z79.01 SENIOR CARE (CURRENT) USE OF ANTICOAGULANT 11/17/2016 ADARSH DO CHRISTIANA K Ot Z79.82 SENIOR CARE (CURRENT) USE OF ASPIRIN 11/17/2016 CHRISTIANA ALTAMIRANO DO Ot Z79.899 OTHER SENIOR CARE (CURRENT) DRUG THERAPY 11/17/2016 ADARSH CHRISTIANA Ot Z95.0 PRESENCE OF CARDIAC PACEMAKER 11/19/2016 LUIS M GEORGES DO, Ot I25.2 OLD MYOCARDIAL INFARCTION 11/19/2016 LUIS M GEORGES DO, Ot Z09 ENCNTR FOR F/U EXAM AFT TRTMT FOR COND O 11/19/2016 LUIS M GEORGES DO, Ot Z95.2 PRESENCE OF PROSTHETIC HEART VALVE 12/01/2016 Rui SQUIRES MD Ot I35.0 NONRHEUMATIC AORTIC (VALVE) STENOSIS 12/01/2016 Rui SQUIRES MD Ot I48.91 UNSPECIFIED ATRIAL FIBRILLATION 12/01/2016 Rui SQUIRES MD Ot R55 SYNCOPE AND COLLAPSE 12/04/2016 Rui SQUIRES MD Ot I35.0 NONRHEUMATIC AORTIC (VALVE) STENOSIS 12/04/2016 Rui SQUIRES MD Ot I48.91 UNSPECIFIED ATRIAL FIBRILLATION 12/04/2016 Rui SQUIRES MD Ot R55 SYNCOPE AND COLLAPSE 12/10/2016 LUIS M GEORGES DO, Ot R55 SYNCOPE AND COLLAPSE 12/16/2016 Rui SQUIRES MD Ot I35.0 NONRHEUMATIC AORTIC (VALVE) STENOSIS 12/16/2016 Rui SQUIRES MD Ot I48.91 UNSPECIFIED ATRIAL FIBRILLATION 12/16/2016 Rui SQUIRES MD Ot R55 SYNCOPE AND COLLAPSE 12/17/2016 LUIS M GEORGES DO, Ot R55 SYNCOPE AND COLLAPSE 12/19/2016 Rui SQUIRES MD Ot I35.0 NONRHEUMATIC AORTIC (VALVE) STENOSIS 12/19/2016 Rui SQUIRES MD Ot I48.91 UNSPECIFIED ATRIAL FIBRILLATION 12/19/2016 Rui SQUIRES MD Ot R55 SYNCOPE AND COLLAPSE 12/19/2016 Rui SQUIRES MD Ot I35.0 NONRHEUMATIC AORTIC (VALVE) STENOSIS 12/19/2016 Rui SQUIRES MD Ot I48.91 UNSPECIFIED ATRIAL FIBRILLATION 12/19/2016 Rui SQUIRES MD Ot R55 SYNCOPE AND COLLAPSE 12/19/2016 Rui SQUIRES MD Ot I35.0 NONRHEUMATIC AORTIC (VALVE) STENOSIS 12/19/2016 Rui SQUIRES MD Ot I48.91 UNSPECIFIED ATRIAL FIBRILLATION 12/19/2016 Rui SQUIRES MD Ot R55 SYNCOPE AND COLLAPSE 12/19/2016 Rui SQUIRES MD Ot I35.0 NONRHEUMATIC AORTIC (VALVE) STENOSIS 12/19/2016 Rui SQUIRES MD Ot I48.91 UNSPECIFIED ATRIAL FIBRILLATION 12/19/2016 Rui SQUIRES MD Ot R55 SYNCOPE AND COLLAPSE 12/31/2016 Rui SQUIRES MD Ot I35.0 NONRHEUMATIC AORTIC (VALVE) STENOSIS 12/31/2016 Rui SQUIRES MD Ot I48.91 UNSPECIFIED ATRIAL FIBRILLATION 12/31/2016 Rui SQUIRES MD Ot R55 SYNCOPE AND COLLAPSE 01/08/2017 Rui SQUIRES MD Ot I35.0 NONRHEUMATIC AORTIC (VALVE) STENOSIS 01/08/2017 Rui SQUIRES MD Ot I48.91 UNSPECIFIED ATRIAL FIBRILLATION 01/08/2017 Rui SQUIRES MD Ot R55 SYNCOPE AND COLLAPSE 01/12/2017 LUIS M GEORGES DO Ot I25.2 OLD MYOCARDIAL INFARCTION 01/12/2017 LUIS M GEORGES DO Ot Z09 ENCNTR FOR F/U EXAM AFT TRTMT FOR COND O 01/12/2017 LUIS M GEORGES DO Ot Z95.2 PRESENCE OF PROSTHETIC HEART VALVE 01/13/2017 LUIS M GEORGES DO Ot I25.2 OLD MYOCARDIAL INFARCTION 01/13/2017 LUIS M GEORGES DO, Ot Z09 ENCNTR FOR F/U EXAM AFT TRTMT FOR COND O 01/13/2017 LUIS M GEORGES DO Ot Z95.2 PRESENCE OF PROSTHETIC HEART VALVE 01/13/2017 LUIS M GEORGES DO Ot I25.2 OLD MYOCARDIAL INFARCTION 01/13/2017 LUIS M GEORGES DO, Ot Z09 ENCNTR FOR F/U EXAM AFT TRTMT FOR COND O 01/13/2017 GEORGESLUIS M OLIVIA DO Ot Z95.2 PRESENCE OF PROSTHETIC HEART VALVE 01/14/2017 GEORGESLUIS M OLIVIA DO Ot I25.2 OLD MYOCARDIAL INFARCTION 01/14/2017 GEORGES LUIS M SEXTON Ot Z09 ENCNTR FOR F/U EXAM AFT TRTMT FOR COND O 01/14/2017 GEORGES LUIS M SEXTON Ot Z95.2 PRESENCE OF PROSTHETIC HEART VALVE 01/22/2017 GEORGESLUIS M OLIVIA DO Ot 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 MYOCARDIAL INFARCTION 01/22/2017 GEORGESLUIS M OLIVIA DO Ot Z09 ENCNTR FOR F/U EXAM AFT TRTMT FOR COND O 01/22/2017 GEORGES DO LUIS M Elle Ot Z95.2 PRESENCE OF PROSTHETIC HEART VALVE 02/10/2017 LUIS M GEORGES DO Ot R55 SYNCOPE AND COLLAPSE 02/13/2017 LUIS M GEORGES DO Ot I25.2 OLD MYOCARDIAL INFARCTION 02/13/2017 LUIS M GEORGES DO Ot Z09 ENCNTR FOR F/U EXAM AFT TRTMT FOR COND O 02/13/2017 GEORGESLUIS M OLIVIA DO Ot Z95.2 PRESENCE OF PROSTHETIC HEART VALVE 02/20/2017 LUIS M GEORGES DO Ot I25.2 OLD MYOCARDIAL INFARCTION 02/20/2017 LUIS M GEORGES DO Ot Z09 ENCNTR FOR F/U EXAM AFT TRTMT FOR COND O 02/20/2017 LUIS M GEORGES DO Ot Z95.2 PRESENCE OF PROSTHETIC HEART VALVE 02/21/2017 LUIS M GEORGES DO Ot I25.2 OLD MYOCARDIAL INFARCTION 02/21/2017 LUIS M GEORGES DO Ot Z09 ENCNTR FOR F/U EXAM AFT TRTMT FOR COND O 02/21/2017 LUIS M GEORGES DO Ot Z95.2 PRESENCE OF PROSTHETIC HEART VALVE 05/22/2017 PHU MATHUR MD Ot K62.5 HEMORRHAGE OF ANUS AND RECTUM 05/22/2017 PHU MATHUR MD Ot Z01.818 ENCOUNTER FOR OTHER PREPROCEDURAL EXAMIN 05/27/2017 PHU MATHUR MD Ot E78.00 PURE HYPERCHOLESTEROLEMIA, UNSPECIFIED 05/27/2017 PHU MATHUR MD, Ot G47.33 OBSTRUCTIVE SLEEP APNEA (ADULT) (PEDIATR 05/27/2017 PHU MATHUR MD Ot I10 ESSENTIAL (PRIMARY) HYPERTENSION 05/27/2017 PHU MATHUR MD Ot I25.10 ATHSCL HEART DISEASE OF [place] CORONARY 05/27/2017 PHU MATHUR MD, Ot I25.2 OLD MYOCARDIAL INFARCTION 05/27/2017 PHU MATHUR MD Ot I48.91 UNSPECIFIED ATRIAL FIBRILLATION 05/27/2017 PHU MATHUR MD, Ot K57.30 DVRTCLOS OF LG INT W/O PERFORATION OR AB 05/27/2017 PHU MATHUR MD, Ot K62.5 HEMORRHAGE OF ANUS AND RECTUM 05/27/2017 PHU MATHUR MD, Ot K64.0 FIRST DEGREE HEMORRHOIDS 05/27/2017 PHU MATHUR MD Ot Z79.01 SENIOR CARE (CURRENT) USE OF ANTICOAGULANT 05/27/2017 PHU MATHUR MD, Ot Z79.82 SENIOR CARE (CURRENT) USE OF ASPIRIN 05/27/2017 PHU MATHUR MD Ot Z85.46 PERSONAL HISTORY OF MALIGNANT NEOPLASM O 05/27/2017 PHU MATHUR MD Ot Z87.891 PERSONAL HISTORY OF NICOTINE DEPENDENCE 05/27/2017 PHU MATHUR MD Ot Z95.0 PRESENCE OF CARDIAC PACEMAKER 05/27/2017 PHU MATHUR MD Ot Z95.2 PRESENCE OF PROSTHETIC HEART VALVE 05/27/2017 PHU MATHUR MD Ot Z95.5 PRESENCE OF CORONARY ANGIOPLASTY IMPLANT 05/28/2017 PHU MATHUR MD Ot E78.00 PURE HYPERCHOLESTEROLEMIA, UNSPECIFIED 05/28/2017 PHU MATHUR MD, Ot G47.33 OBSTRUCTIVE SLEEP APNEA (ADULT) (PEDIATR 05/28/2017 PHU MATHUR MD Ot I10 ESSENTIAL (PRIMARY) HYPERTENSION 05/28/2017 PHU MATHUR MD, Ot I25.10 ATHSCL HEART DISEASE OF [place] CORONARY 05/28/2017 PHU MATHUR MD, Ot I25.2 OLD MYOCARDIAL INFARCTION 05/28/2017 PHU MATHUR MD Ot I48.91 UNSPECIFIED ATRIAL FIBRILLATION 05/28/2017 PHU MATHUR MD, Ot K57.30 DVRTCLOS OF LG INT W/O PERFORATION OR AB 05/28/2017 PHU MATHUR MD, Ot K62.5 HEMORRHAGE OF ANUS AND RECTUM 05/28/2017 PHU MATHUR MD, Ot K64.0 FIRST DEGREE HEMORRHOIDS 05/28/2017 PHU MATHUR MD, Ot Z79.01 SENIOR CARE (CURRENT) USE OF ANTICOAGULANT 05/28/2017 PHU MATHUR MD, Ot Z79.82 SENIOR CARE (CURRENT) USE OF ASPIRIN 05/28/2017 PHU MATHUR MD, Ot Z85.46 PERSONAL HISTORY OF MALIGNANT NEOPLASM O 05/28/2017 PHU MATHUR MD, Ot Z87.891 PERSONAL HISTORY OF NICOTINE DEPENDENCE 05/28/2017 PHU MATHUR MD, Ot Z95.0 PRESENCE OF CARDIAC PACEMAKER 05/28/2017 PHU MATHUR MD Ot Z95.2 PRESENCE OF PROSTHETIC HEART VALVE 05/28/2017 PHU MATHUR MD, Ot Z95.5 PRESENCE OF CORONARY ANGIOPLASTY IMPLANT 05/29/2017 PHU MATHUR MD Ot E78.00 PURE HYPERCHOLESTEROLEMIA, UNSPECIFIED 05/29/2017 PHU MATHUR MD, Ot G47.33 OBSTRUCTIVE SLEEP APNEA (ADULT) (PEDIATR 05/29/2017 PHU MATHUR MD Ot I10 ESSENTIAL (PRIMARY) HYPERTENSION 05/29/2017 PHU MATHUR MD, Ot I25.10 ATHSCL HEART DISEASE OF [place] CORONARY 05/29/2017 PHU MATHUR MD, Ot I25.2 OLD MYOCARDIAL INFARCTION 05/29/2017 PHU MATHUR MD Ot I48.91 UNSPECIFIED ATRIAL FIBRILLATION 05/29/2017 PHU MATHUR MD, Ot K57.30 DVRTCLOS OF LG INT W/O PERFORATION OR AB 05/29/2017 PHU MATHUR MD, Ot K62.5 HEMORRHAGE OF ANUS AND RECTUM 05/29/2017 PHU MATHUR MD, Ot K64.0 FIRST DEGREE HEMORRHOIDS 05/29/2017 PHU MATHUR MD, Ot Z79.01 COST CONTROL ANALYST (CURRENT) USE OF ANTICOAGULANT 05/29/2017 PHU MATHUR MD, Ot Z79.82 COST CONTROL ANALYST (CURRENT) USE OF ASPIRIN 05/29/2017 PHU MATHUR MD, Ot Z85.46 PERSONAL HISTORY OF MALIGNANT NEOPLASM O 05/29/2017 PHU MATHUR MD, Ot Z87.891 PERSONAL HISTORY OF NICOTINE DEPENDENCE 05/29/2017 PHU MATHUR MD, Ot Z95.0 PRESENCE OF CARDIAC PACEMAKER 05/29/2017 PHU MATHUR MD, Ot Z95.2 PRESENCE OF PROSTHETIC HEART VALVE 05/29/2017 PHU MATHUR MD, Ot Z95.5 PRESENCE OF CORONARY ANGIOPLASTY IMPLANT 05/29/2017 PHU MATHUR MD Ot E78.00 PURE HYPERCHOLESTEROLEMIA, UNSPECIFIED 05/29/2017 PHU MATHUR MD, Ot G47.33 OBSTRUCTIVE SLEEP APNEA (ADULT) (PEDIATR 05/29/2017 PHU MATHUR MD Ot I10 ESSENTIAL (PRIMARY) HYPERTENSION 05/29/2017 PHU MATHUR MD, Ot I25.10 ATHSCL HEART DISEASE OF [place] CORONARY 05/29/2017 PHU MATHUR MD, Ot I25.2 OLD MYOCARDIAL INFARCTION 05/29/2017 PHU MATHUR MD, Ot I48.91 UNSPECIFIED ATRIAL FIBRILLATION 05/29/2017 PHU MATHUR MD, Ot K57.30 DVRTCLOS OF LG INT W/O PERFORATION OR AB 05/29/2017 PHU MATHUR MD, Ot K62.5 HEMORRHAGE OF ANUS AND RECTUM 05/29/2017 PHU MATHUR MD, Ot K64.0 FIRST DEGREE HEMORRHOIDS 05/29/2017 PHU MATHUR MD Ot Z79.01 COST CONTROL ANALYST (CURRENT) USE OF ANTICOAGULANT 05/29/2017 PHU MATHUR MD, Ot Z79.82 COST CONTROL ANALYST (CURRENT) USE OF ASPIRIN 05/29/2017 PHU MATHUR MD, Ot Z85.46 PERSONAL HISTORY OF MALIGNANT NEOPLASM O 05/29/2017 PHU MATHUR MD, Ot Z87.891 PERSONAL HISTORY OF NICOTINE DEPENDENCE 05/29/2017 PHU MATHUR MD, Ot Z95.0 PRESENCE OF CARDIAC PACEMAKER 05/29/2017 PHU MATHUR MD, Ot Z95.2 PRESENCE OF PROSTHETIC HEART VALVE 05/29/2017 PHU MATHUR MD Ot Z95.5 PRESENCE OF CORONARY ANGIOPLASTY IMPLANT 08/12/2017 DAPHNE RIOS APRN Ot G47.33 OBSTRUCTIVE SLEEP APNEA (ADULT) (PEDIATR 08/12/2017 DAPHNE RIOS APRN Ot R06.81 APNEA, NOT ELSEWHERE CLASSIFIED 08/12/2017 DAPHNE RIOS APRN Ot G47.30 SLEEP APNEA, UNSPECIFIED 08/18/2017 DAPHNE RIOS INTERNAL REVIEW AND AUDIT COMPLIANCE Ot G47.33 OBSTRUCTIVE SLEEP APNEA (ADULT) (PEDIATR 08/18/2017 DAPHNE RIOS INTERNAL REVIEW AND AUDIT COMPLIANCE Ot G47.33 OBSTRUCTIVE SLEEP APNEA (ADULT) (PEDIATR 09/02/2017 DAPHNE RIOS INTERNAL REVIEW AND AUDIT COMPLIANCE Ot G47.33 OBSTRUCTIVE SLEEP APNEA (ADULT) (PEDIATR 09/02/2017 DAPHNE RIOS INTERNAL REVIEW AND AUDIT COMPLIANCE Ot R06.81 APNEA, NOT ELSEWHERE CLASSIFIED 10/28/2017 SHAW GUILLORY, Rui ZAMORANO Ot I25.10 ATHSCL HEART DISEASE OF [place] CORONARY 10/28/2017 SHAW GUILLORY, Rui ZAMORANO Ot I35.0 NONRHEUMATIC AORTIC (VALVE) STENOSIS 10/28/2017 Rui SQUIRES MD Ot I48.91 UNSPECIFIED ATRIAL FIBRILLATION 10/28/2017 Rui SQUIRES MD Ot R07.9 CHEST PAIN, UNSPECIFIED 10/28/2017 Rui SQUIRES MD Ot R42 DIZZINESS AND GIDDINESS 10/28/2017 Ot 592.1 CALCULUS OF URETER 10/28/2017 ARSENIO GEORGES MECHANICAL PLANNER Ot 719.07 JOINT EFFUSION-ANKLE 10/28/2017 ARSENIO GEORGES MECHANICAL PLANNER Ot 719.47 JOINT PAIN-ANKLE 10/28/2017 ARSENIO GEORGES MECHANICAL PLANNER Ot E000.8 OTHER EXTERNAL CAUSE STATUS 10/28/2017 ARSENIO GEORGES MECHANICAL PLANNER Ot E849.0 ACCIDENT IN HOME 10/28/2017 ARSENIO GEORGES MECHANICAL PLANNER Ot E927.0 OVEREXERTION FROM SUDDEN STRENUOUS MOVEM 10/28/2017 TAWANNA GUILLORY, MARIELOS Fabian Ot V72.84 EXAM PRE-OPERATIVE NOS 10/28/2017 LUIS M GEORGES DO Ot 724.00 SPINAL STENOSIS NOS 10/28/2017 ARSENIO GEORGES MECHANICAL PLANNER Ot 729.1 MYALGIA AND MYOSITIS NOS 10/28/2017 ARSENIO GEORGES MECHANICAL PLANNER Ot 729.5 PAIN IN LIMB 10/28/2017 ARSENIO GEROGES MECHANICAL PLANNER Ot 780.60 FEVER, UNSPECIFIED 10/28/2017 ARSENIO GEORGES MECHANICAL PLANNER Ot 919.4 INSECT BITE NEC 10/28/2017 ARSENIO GEORGES MECHANICAL PLANNER Ot E000.8 OTHER EXTERNAL CAUSE STATUS 10/28/2017 ARSENIO GEORGES MECHANICAL PLANNER Ot E906.4 NONVENOM ARTHROPOD BITE 10/28/2017 LUIS M GEORGES DO, Ot S39.92XA UNSPECIFIED INJURY OF LOWER BACK, INITIA 10/28/2017 LUIS M GEORGES DO Ot W00.9XXA UNSPECIFIED FALL DUE TO ICE AND SNOW, IN 10/28/2017 LUIS M GEORGES DO, Ot Y99.8 OTHER EXTERNAL CAUSE STATUS 10/28/2017 LUIS M GEORGES DO, Ot S30.0XXA CONTUSION OF LOWER BACK AND PELVIS, INIT 10/28/2017 LUIS M GEORGES DO Ot W19.XXXA UNSPECIFIED FALL, INITIAL ENCOUNTER 10/28/2017 LUIS M GEORGES DO, Ot Y99.8 OTHER EXTERNAL CAUSE STATUS 10/28/2017 LUIS M GEORGES DO Ot R22.1 LOCALIZED SWELLING, MASS AND LUMP, NECK 10/28/2017 Rui SQUIRES MD Ot I35.0 NONRHEUMATIC AORTIC (VALVE) STENOSIS 10/28/2017 Rui SQUIRES MD Ot I48.91 UNSPECIFIED ATRIAL FIBRILLATION 10/28/2017 Rui SQUIRES MD Ot R55 SYNCOPE AND COLLAPSE 10/28/2017 Rui SQUIRES MD Ot I35.0 NONRHEUMATIC AORTIC (VALVE) STENOSIS 10/28/2017 Rui SQUIRES MD Ot I48.91 UNSPECIFIED ATRIAL FIBRILLATION 10/28/2017 Rui SQUIRES MD Ot R55 SYNCOPE AND COLLAPSE 10/28/2017 LUIS M GEORGES DO, Ot R55 SYNCOPE AND COLLAPSE 10/28/2017 DAPHNE RIOS APRN Ot G47.33 OBSTRUCTIVE SLEEP APNEA (ADULT) (PEDIATR 10/28/2017 DAPHNE RIOS APRN Ot R06.81 APNEA, NOT ELSEWHERE CLASSIFIED 10/28/2017 Rui SQUIRES MD Ot I25.10 ATHSCL HEART DISEASE OF [place] CORONARY 10/28/2017 SHAW GUILLORY, Rui ZAMORANO Ot I35.0 NONRHEUMATIC AORTIC (VALVE) STENOSIS 10/28/2017 SHAW GUILLORY, Rui ZAMORANO Ot I48.91 UNSPECIFIED ATRIAL FIBRILLATION 10/28/2017 SHAW GUILLORY, Rui ZAMORANO Ot R07.9 CHEST PAIN, UNSPECIFIED 10/28/2017 SHAW GUILLORY, Rui ZAMORANO Ot R42 DIZZINESS AND GIDDINESS 10/29/2017 Ot 592.1 CALCULUS OF URETER 10/29/2017 ARSENIO GEORGES MECHANICAL PLANNER Ot 719.07 JOINT EFFUSION-ANKLE 10/29/2017 KEVIN GEORGESIA L MECHANICAL PLANNER Ot 719.47 JOINT PAIN-ANKLE 10/29/2017 ARSENIO GEORGES MECHANICAL PLANNER Ot E000.8 OTHER EXTERNAL CAUSE STATUS 10/29/2017 ARSENIO GEORGES MECHANICAL PLANNER Ot E849.0 ACCIDENT IN HOME 10/29/2017 ARSENIO GEORGES MECHANICAL PLANNER Ot E927.0 OVEREXERTION FROM SUDDEN STRENUOUS MOVEM 10/29/2017 TAWANNA GUILLORY, MARIELOS Fabian Ot V72.84 EXAM PRE-OPERATIVE NOS 10/29/2017 LUIS M GEORGES DO Ot 724.00 SPINAL STENOSIS NOS 10/29/2017 ARSENIO GEORGES MECHANICAL PLANNER Ot 729.1 MYALGIA AND MYOSITIS NOS 10/29/2017 ARSENIO GEORGES MECHANICAL PLANNER Ot 729.5 PAIN IN LIMB 10/29/2017 ARSENIO GEORGES MECHANICAL PLANNER Ot 780.60 FEVER, UNSPECIFIED 10/29/2017 ARSENIO GEORGES MECHANICAL PLANNER Ot 919.4 INSECT BITE NEC 10/29/2017 ARSENIO GEORGES MECHANICAL PLANNER Ot E000.8 OTHER EXTERNAL CAUSE STATUS 10/29/2017 ARSENIO GEORGES MECHANICAL PLANNER Ot E906.4 NONVENOM ARTHROPOD BITE 10/29/2017 LUIS M GEORGES DO Ot S39.92XA UNSPECIFIED INJURY OF LOWER BACK, INITIA 10/29/2017 LUIS M GEORGES DO Ot W00.9XXA UNSPECIFIED FALL DUE TO ICE AND SNOW, IN 10/29/2017 LUIS M GEORGES DO Ot Y99.8 OTHER EXTERNAL CAUSE STATUS 10/29/2017 LUIS M GEORGES DO Ot S30.0XXA CONTUSION OF LOWER BACK AND PELVIS, INIT 10/29/2017 LUIS M GEORGES DO Ot W19.XXXA UNSPECIFIED FALL, INITIAL ENCOUNTER 10/29/2017 LUIS M GEORGES DO Ot Y99.8 OTHER EXTERNAL CAUSE STATUS 10/29/2017 LUIS M GEORGES DO, Ot R22.1 LOCALIZED SWELLING, MASS AND LUMP, NECK 10/29/2017 Rui SQUIRES MD Ot I35.0 NONRHEUMATIC AORTIC (VALVE) STENOSIS 10/29/2017 Rui QSUIRES MD Ot I48.91 UNSPECIFIED ATRIAL FIBRILLATION 10/29/2017 Rui SQUIRES MD Ot R55 SYNCOPE AND COLLAPSE 10/29/2017 Rui SQUIRES MD Ot I35.0 NONRHEUMATIC AORTIC (VALVE) STENOSIS 10/29/2017 Rui SQUIRES MD Ot I48.91 UNSPECIFIED ATRIAL FIBRILLATION 10/29/2017 Rui SQUIRES MD Ot R55 SYNCOPE AND COLLAPSE 10/29/2017 LUIS M GEORGES DO, Ot R55 SYNCOPE AND COLLAPSE 10/29/2017 DAPHNE RIOS APRN Ot G47.33 OBSTRUCTIVE SLEEP APNEA (ADULT) (PEDIATR 10/29/2017 DAPHNE RIOS APRN Ot R06.81 APNEA, NOT ELSEWHERE CLASSIFIED 10/29/2017 Rui SQUIRES MD Ot I25.10 ATHSCL HEART DISEASE OF [place] CORONARY 10/29/2017 Rui SQUIRES MD Ot I35.0 NONRHEUMATIC AORTIC (VALVE) STENOSIS 10/29/2017 Rui SQUIRES MD Ot I48.91 UNSPECIFIED ATRIAL FIBRILLATION 10/29/2017 Rui SQUIRES MD Ot R07.9 CHEST PAIN, UNSPECIFIED 10/29/2017 Rui SQUIRES MD Ot R42 DIZZINESS AND GIDDINESS Procedures Code Description Performed By [place]formed [place] 80087AL DILATION OF 1 COR ART WITH INTRALUM DEV, 07/17/2016 [id number] FLUOROSCOPY OF RIGHT AND LEFT HEART USIN 07/17/2016 [id number] FLUOROSCOPY OF THORACIC AORTA USING LOW 07/17/2016 Results Test Result Range Complete blood count (CBC) with automated white blood cell (WBC) differential - 07/05/16 20:25 Blood leukocytes automated count (number/volume) 7.2 10*3/uL 4.3-11.0 Blood erythrocytes automated count (number/volume) 4.26 10*6/uL 4.35-5.85 Venous blood hemoglobin measurement (mass/volume) 14.3 g/dL 13.3-17.7 Blood hematocrit (volume fraction) 41 % 40-54 Automated erythrocyte mean corpuscular volume 96 [foz_us] 80-99 Automated erythrocyte mean corpuscular hemoglobin (mass per erythrocyte) 34 pg 25-34 Automated erythrocyte mean corpuscular hemoglobin concentration measurement ( mass/volume) 35 g/dL 32-36 Automated erythrocyte distribution width ratio 12.6 % 10.0-14.5 Automated blood platelet count (count/volume) 200 10*3/uL 130-400 Automated blood platelet mean volume measurement 10.3 [foz_us] 7.4-10.4 Automated blood neutrophils/100 leukocytes 67 % 42-75 Automated blood lymphocytes/100 leukocytes 21 % 12-44 Blood monocytes/100 leukocytes 9 % 0-12 Automated blood eosinophils/100 leukocytes 2 % 0-10 Automated blood basophils/100 leukocytes 1 % 0-10 Blood neutrophils automated count (number/volume) 4.8 10*3 1.8-7.8 Blood lymphocytes automated count (number/volume) 1.5 10*3 1.0-4.0 Blood monocytes automated count (number/volume) 0.7 10*3 0.0-1.0 Automated eosinophil count 0.1 10*3/uL 0.0-0.3 Automated blood basophil count (count/volume) 0.1 10*3/uL 0.0-0.1 PT panel in platelet poor plasma by coagulation assay - 07/05/16 20:25 Prothrombin time (PT) in platelet poor plasma by coagulation assay 14.2 s 12.2-14.7 INR in platelet poor plasma or blood by coagulation assay 1.1 0.8-1.4 Activated partial thromboplastin time (aPTT) in platelet poor plasma bycoagulation assay - 07/05/16 20:25 Activated partial thromboplastin time (aPTT) in platelet poor plasma bycoagulation assay 28 s 24-35 Complete urinalysis with reflex to culture - 07/05/16 20:27 Urine color determination DAHIANA NRG Urine clarity determination VERY CLOUDY NRG Urine pH measurement by test strip 7 5-9 Specific gravity of urine by test strip 1.010 1.016- 1.022 Urine protein assay by test strip, semi-quantitative 3+ NEGATIVE Urine glucose detection by automated test strip NEGATIVE NEGATIVE Erythrocytes detection in urine sediment by light microscopy 5+ NEGATIVE Urine ketones detection by automated test strip NEGATIVE NEGATIVE Urine nitrite detection by test strip NEGATIVE NEGATIVE Urine total bilirubin detection by test strip NEGATIVE NEGATIVE Urine urobilinogen measurement by automated test strip (mass/volume) NORMAL NORMAL Urine leukocyte esterase detection by dipstick 2+ NEGATIVE Automated urine sediment erythrocyte count by microscopy (number/high power field) TNTC NRG Automated urine sediment leukocyte count by microscopy (number/high power field ) [HPF] NRG Bacteria detection in urine sediment by light microscopy NEGATIVE NRG Squamous epithelial cells detection in urine sediment by light microscopy RARE NRG Crystals detection in urine sediment by light microscopy NONE NRG Casts detection in urine sediment by light microscopy NONE NRG Mucus detection in urine sediment by light microscopy NEGATIVE NRG Complete urinalysis with reflex to culture NO NRG Complete blood count (CBC) with automated white blood cell (WBC) differential - 07/17/16 17:47 Blood leukocytes automated count (number/volume) 5.9 10*3/uL 4.3-11.0 Blood erythrocytes automated count (number/volume) 4.19 10*6/uL 4.35-5.85 Venous blood hemoglobin measurement (mass/volume) 14.2 g/dL 13.3-17.7 Blood hematocrit (volume fraction) 41 % 40-54 Automated erythrocyte mean corpuscular volume 97 [foz_us] 80-99 Automated erythrocyte mean corpuscular hemoglobin (mass per erythrocyte) 34 pg 25-34 Automated erythrocyte mean corpuscular hemoglobin concentration measurement ( mass/volume) 35 g/dL 32-36 Automated erythrocyte distribution width ratio 12.6 % 10.0-14.5 Automated blood platelet count (count/volume) 170 10*3/uL 130-400 Automated blood platelet mean volume measurement 10.7 [foz_us] 7.4-10.4 Automated blood neutrophils/100 leukocytes 50 % 42-75 Automated blood lymphocytes/100 leukocytes 36 % 12-44 Blood monocytes/100 leukocytes 10 % 0-12 Automated blood eosinophils/100 leukocytes 3 % 0-10 Automated blood basophils/100 leukocytes 1 % 0-10 Blood neutrophils automated count (number/volume) 2.9 10*3 1.8-7.8 Blood lymphocytes automated count (number/volume) 2.1 10*3 1.0-4.0 Blood monocytes automated count (number/volume) 0.6 10*3 0.0-1.0 Automated eosinophil count 0.2 10*3/uL 0.0-0.3 Automated blood basophil count (count/volume) 0.1 10*3/uL 0.0-0.1 PT panel in platelet poor plasma by coagulation assay - 07/17/16 17:47 Prothrombin time (PT) in platelet poor plasma by coagulation assay 15.3 s 12.2-14.7 INR in platelet poor plasma or blood by coagulation assay 1.2 0.8-1.4 Activated partial thromboplastin time (aPTT) in platelet poor plasma bycoagulation assay - 07/17/16 17:47 Activated partial thromboplastin time (aPTT) in platelet poor plasma bycoagulation assay 25 s 24-35 Serum or plasma lithium measurement (moles/volume) - 07/17/16 17:47 BNP level 414.5 pg/mL <100.0 Comprehensive metabolic panel - 07/17/16 17:47 Serum or plasma sodium measurement (moles/volume) 135 mmol/L 135-145 Serum or plasma potassium measurement (moles/volume) 3.6 mmol/L 3.6-5.0 Serum or plasma chloride measurement (moles/volume) 100 mmol/L 98-107 Carbon dioxide 25 mmol/L 21-32 Serum or plasma anion gap determination (moles/volume) 10 mmol/L 5-14 Serum or plasma urea nitrogen measurement (mass/volume) 14 mg/dL 7-18 Serum or plasma creatinine measurement (mass/volume) 0.94 mg/dL 0.60-1.30 Serum or plasma urea nitrogen/creatinine mass ratio 15 NRG Serum or plasma creatinine measurement with calculation of estimated glomerular filtration rate > NRG Serum or plasma glucose measurement (mass/volume) 136 mg/dL 70-105 Serum or plasma calcium measurement (mass/volume) 9.3 mg/dL 8.5-10.1 Serum or plasma total bilirubin measurement (mass/volume) 0.8 mg/dL 0.1-1.0 Serum or plasma alkaline phosphatase measurement (enzymatic activity/volume) 54 U/L 40-136 Serum or plasma aspartate aminotransferase measurement (enzymatic activity/ volume) 28 U/L 5-34 Serum or plasma alanine aminotransferase measurement (enzymatic activity/volume ) 36 U/L 0-55 Serum or plasma protein measurement (mass/volume) 6.6 g/dL 6.4-8.2 Serum or plasma albumin measurement (mass/volume) 4.2 g/dL 3.2-4.5 Magnesium - 07/17/16 17:47 Magnesium 2.3 mg/dL 1.8-2.4 Serum or plasma creatine kinase measurement (enzymatic activity/volume) - 07/17 17:47 Serum or plasma creatine kinase measurement (enzymatic activity/volume) 87 U/L 30-200 Serum or plasma creatine kinase MB measurement (enzymatic activity/volume) - 17:47 Serum or plasma creatine kinase MB measurement (enzymatic activity/volume) 2.8 ng/mL <6.6 Serum or plasma troponin i.cardiac measurement (mass/volume) - 07/17/16 17:47 Serum or plasma troponin i.cardiac measurement (mass/volume) < ng/ mL <0.30 Serum or plasma amylase measurement (enzymatic activity/volume) - 07/17/16 17: 47 Serum or plasma amylase measurement (enzymatic activity/volume) 47 U /L 25-125 Lipase - 07/17/16 17:47 Lipase 31 U/L 8-78 Serum or plasma troponin i.cardiac measurement (mass/volume) - 07/17/16 19:15 Serum or plasma troponin i.cardiac measurement (mass/volume) < ng/ mL <0.30 Serum or plasma troponin i.cardiac measurement (mass/volume) - 07/17/16 21:01 Serum or plasma troponin i.cardiac measurement (mass/volume) 2.91 ng /mL <0.30 Automated blood complete blood count (hemogram) panel - 07/18/16 03:26 Blood leukocytes automated count (number/volume) 6.5 10*3/uL 4.3-11.0 Blood erythrocytes automated count (number/volume) 3.68 10*6/uL 4.35-5.85 Venous blood hemoglobin measurement (mass/volume) 12.3 g/dL 13.3-17.7 Blood hematocrit (volume fraction) 36 % 40-54 Automated erythrocyte mean corpuscular volume 98 [foz_us] 80-99 Automated erythrocyte mean corpuscular hemoglobin (mass per erythrocyte) 33 pg 25-34 Automated erythrocyte mean corpuscular hemoglobin concentration measurement ( mass/volume) 34 g/dL 32-36 Automated erythrocyte distribution width ratio 12.8 % 10.0-14.5 Automated blood platelet count (count/volume) 140 10*3/uL 130-400 Automated blood platelet mean volume measurement 10.6 [foz_us] 7.4-10.4 Whole blood basic metabolic panel - 07/18/16 03:26 Serum or plasma sodium measurement (moles/volume) 136 mmol/L 135-145 Serum or plasma potassium measurement (moles/volume) 4.5 mmol/L 3.6-5.0 Serum or plasma chloride measurement (moles/volume) 108 mmol/L 98-107 Carbon dioxide 20 mmol/L 21-32 Serum or plasma anion gap determination (moles/volume) 8 mmol/L 5-14 Serum or plasma urea nitrogen measurement (mass/volume) 13 mg/dL 7-18 Serum or plasma creatinine measurement (mass/volume) 0.75 mg/dL 0.60-1.30 Serum or plasma urea nitrogen/creatinine mass ratio 17 NRG Serum or plasma creatinine measurement with calculation of estimated glomerular filtration rate > NRG Serum or plasma glucose measurement (mass/volume) 119 mg/dL 70-105 Serum or plasma calcium measurement (mass/volume) 8.1 mg/dL 8.5-10.1 Lipid 1996 panel - 07/18/16 03:26 Serum or plasma triglyceride measurement (mass/volume) 62 mg/dL <150 Serum or plasma cholesterol measurement (mass/volume) 96 mg/dL < 200 Serum or plasma cholesterol in HDL measurement (mass/volume) 30 mg/ dL 40-60 Cholesterol in LDL [mass/volume] in serum or plasma by direct assay 59 mg/dL 1-129 Serum or plasma cholesterol in VLDL measurement (mass/volume) 12 mg/ dL 5-40 Serum or plasma troponin i.cardiac measurement (mass/volume) - 07/18/16 09:01 Serum or plasma troponin i.cardiac measurement (mass/volume) 66.04 ng/mL <0.30 Complete blood count (CBC) with automated white blood cell (WBC) differential - 07/18/16 17:07 Blood leukocytes automated count (number/volume) 6.4 10*3/uL 4.3-11.0 Blood erythrocytes automated count (number/volume) 3.83 10*6/uL 4.35-5.85 Venous blood hemoglobin measurement (mass/volume) 12.9 g/dL 13.3-17.7 Blood hematocrit (volume fraction) 38 % 40-54 Automated erythrocyte mean corpuscular volume 98 [foz_us] 80-99 Automated erythrocyte mean corpuscular hemoglobin (mass per erythrocyte) 34 pg 25-34 Automated erythrocyte mean corpuscular hemoglobin concentration measurement ( mass/volume) 34 g/dL 32-36 Automated erythrocyte distribution width ratio 13.2 % 10.0-14.5 Automated blood platelet count (count/volume) 138 10*3/uL 130-400 Automated blood platelet mean volume measurement 10.4 [foz_us] 7.4-10.4 Automated blood neutrophils/100 leukocytes 70 % 42-75 Automated blood lymphocytes/100 leukocytes 19 % 12-44 Blood monocytes/100 leukocytes 9 % 0-12 Automated blood eosinophils/100 leukocytes 2 % 0-10 Automated blood basophils/100 leukocytes 0 % 0-10 Blood neutrophils automated count (number/volume) 4.4 10*3 1.8-7.8 Blood lymphocytes automated count (number/volume) 1.2 10*3 1.0-4.0 Blood monocytes automated count (number/volume) 0.6 10*3 0.0-1.0 Automated eosinophil count 0.1 10*3/uL 0.0-0.3 Automated blood basophil count (count/volume) 0.0 10*3/uL 0.0-0.1 PT panel in platelet poor plasma by coagulation assay - 07/18/16 17:07 Prothrombin time (PT) in platelet poor plasma by coagulation assay 16.8 s 12.2-14.7 INR in platelet poor plasma or blood by coagulation assay 1.4 0.8-1.4 PT panel in platelet poor plasma by coagulation assay - 07/19/16 06:17 Prothrombin time (PT) in platelet poor plasma by coagulation assay 17.0 s 12.2-14.7 INR in platelet poor plasma or blood by coagulation assay 1.4 0.8-1.4 Encounters ACCT No. Visit Date/Time Discharge Status Pt. Type Provider Facility Loc./Unit Complaint [id number] 10/26/2017 10:51:00 10/26/2017 23:59:59 CLS Outpatient Rui SQUIRES MD [facility] CARD I48.91 AF [id number] 08/17/2017 20:48:00 08/18/2017 06:10:00 DIS Outpatient DAPHNE RIOS INTERNAL REVIEW AND AUDIT COMPLIANCE [facility] SLEEP R06.81 CENTRAL APNEA [id number] 08/11/2017 11:10:00 08/11/2017 23:59:59 CLS Outpatient DAPHNE RIOS INTERNAL REVIEW AND AUDIT COMPLIANCE [facility] LAB R06.81,G47.33 [id number] 05/27/2017 10:03:00 05/27/2017 13:35:00 DIS Outpatient PHU MATHUR MD [facility] ENDO RECTAL BLEEDING [id number] 05/22/2017 13:23:00 05/22/2017 13:54:00 DIS Outpatient PHU MTAHUR MD [facility] PREOP COLONOSCOPY [id number] 02/20/2017 10:25:00 02/21/2017 11:00:00 DIS Outpatient LUIS M GEORGES DO [facility] CR AMI,TAVR [id number] 02/11/2017 10:00:00 02/11/2017 23:59:59 CLS Preadmit LUIS M GEORGES DO [facility] CARD NEAR SYNCOPE [id number] 11/12/2016 09:46:00 02/10/2017 00:01:00 DIS Outpatient LUIS M GEORGES DO [facility] CARD NEAR SYNCOPE [id number] 01/12/2017 09:59:00 01/13/2017 00:01:00 DIS Outpatient LUIS M GEORGES DO [facility] CR AMI,TAVR [id number] 12/10/2016 11:54:00 12/10/2016 23:59:59 CLS Outpatient Rui SQUIRES MD [facility] CARD AF,AORTIC STENOSIS [id number] 11/04/2016 08:15:00 11/04/2016 23:59:59 CLS Outpatient Rui SQUIRES MD [facility] CARD AF,AORTIC STENOSIS,NEAR SYNCOPE [id number] 07/17/2016 23:02:00 07/19/2016 13:30:00 DIS Inpatient Rui SQUIRES MD [facility] 4TH STEMI VS NSTEMI [id number] 07/17/2016 17:44:00 07/17/2016 20:14:00 DIS Emergency CHRISTIANA ALTAMIRANO DO [facility] ER CP [id number] 07/05/2016 19:57:00 07/05/2016 21:34:00 DIS Emergency CHRISTIANA ALTAMIRANO DO [facility] ER BLOOD CLOTS IN CATHERTER [id number] 12/06/2015 06:00:00 12/06/2015 11:30:00 DIS Outpatient PHU MATHUR MD [facility] SDC RIGHT NECK MASS [id number] 12/03/2015 08:52:00 12/03/2015 09:20:00 DIS Outpatient PHU MATHUR MD [facility] PREOP RIGHT NECK MASS [id number] 10/31/2015 11:36:00 10/31/2015 23:59:59 CLS Outpatient LUIS M GEORGES DO [facility] RAD RIGHT SIDED NECK MASS [id number] 08/14/2015 11:20:00 08/14/2015 23:59:59 CLS Outpatient LUIS M GEORGES DO [facility] RAD SPINE TRAUMA [id number] 08/08/2015 14:17:00 08/08/2015 23:59:59 CLS Outpatient LUIS M GEORGES DO [facility] RAD TRAUMA [id number] 03/07/2015 21:05:00 03/08/2015 06:50:00 DIS Outpatient LUIS M GEORGES DO [facility] SLEEP OBSERVED APNEAS ARRHYTHMIAS ISCHEMIC HEART DISEASE [id number] 12/23/2014 09:01:00 12/25/2014 11:30:00 DIS Inpatient LUIS M GEORGES DO [facility] SURGICAL CELLULITIS [id number] 12/22/2014 10:38:00 12/22/2014 23:59:59 CLS Outpatient ARSENIO GEORGES [facility] RAD EDEMA,PAIN,TICK BITE,FEVER,MALGIA [id number] 08/16/2014 08:09:00 08/16/2014 23:59:59 CLS Outpatient LUIS M GEORGES DO [facility] RAD SPINAL STENOSIS [id number] 02/22/2014 10:16:00 02/22/2014 14:35:00 DIS Outpatient MARIELOS STACY MD [facility] SDC RECTAL BLEEDING [id number] 02/17/2014 11:48:00 02/17/2014 23:59:59 CLS Outpatient MARIELOS STACY MD [facility] PREOP RECTAL BLEEDING [id number] 04/12/2013 10:23:00 04/12/2013 23:59:59 CLS Outpatient ARSENIO GEORGES [facility] RAD TWISTED ANKLE, PAIN SWELLING [id number] 02/18/2013 10:30:00 02/18/2013 23:59:59 CLS Outpatient [id number] 11/05/2017 11:00:00 PEN Preadmit Rui SQUIRES MD [facility] CARD R42 DIZZINESS [id number] 11/02/2017 12:00:00 PEN Preadmit Rui SQUIRES MD [facility] CARD [id number] 10/29/2017 08:01:00 ACT Outpatient Rui SQUIRES MD [facility] ABN STRESS TEST [id number] 10/06/2012 16:21:00 Document Registration [id number] 10/04/2012 12:08:00 Document Registration [id number] 10/02/2012 01:00:00 Document Registration [id number] 01/31/2012 15:26:00 Document Registration [id number] 03/07/2015 21:07:28 ACT Document Registration
== END 2017-10-29 16:20 | disposition home or self-care (01) ==
LOC: CATH 08:01 → SURG 11:15 → CATH 16:20
PROVIDERS: ATTEND Internal Medicine Interventional Cardiology
DX: I25.10 Atherosclerotic heart disease of native coronary artery without angina pectoris (principal); I25.5 Ischemic cardiomyopathy; I48.2 Chronic atrial fibrillation; R42 Dizziness and giddiness; I25.2 Old myocardial infarction; Z95.0 Presence of cardiac pacemaker; Z95.2 Presence of prosthetic heart valve; Z95.5 Presence of coronary angioplasty implant and graft; Z79.01 Long term (current) use of anticoagulants; Z79.899 Other long term (current) drug therapy; Z87.891 Personal history of nicotine dependence
CPT/HCPCS: 36221; 36415; 80053; 85027; 85610; 85730; 87081; 93454; 93567

== ENCOUNTER 2017-11-09 11:50 | Outpatient (RCR) | payer MEDICARE | END 2018-02-07 | disposition home or self-care (01) | LOC: CARD 11:50 | PROVIDERS: ATTEND Internal Medicine Interventional Cardiology | DX: I48.91 Unspecified atrial fibrillation (principal); I35.0 Nonrheumatic aortic (valve) stenosis; I25.10 Atherosclerotic heart disease of native coronary artery without angina pectoris; R07.9 Chest pain, unspecified; R42 Dizziness and giddiness | CPT/HCPCS: 93225; 93226 ==

== ENCOUNTER → 2017-11-18 | Outpatient (CLI) | payer MEDICARE ==
--- NOTE | 2017-11-18 14:25 | Diagnostic Imaging Report ---
PROCEDURE: CT head without contrast. TECHNIQUE: Multiple contiguous axial images were obtained through the brain without the use of intravenous contrast. INDICATION: Dizziness and blurred vision x3 months. FINDINGS: There is generalized atrophy. There is some decreased density in the periventricular white matter consistent with chronic small vessel ischemic change. There are no masses or hemorrhages. There are no extra-axial fluid collections. There is calcific atherosclerosis at the basicervical junction. 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 No acute abnormality is seen. Dictated by: Dictated on workstation # [id number]
== END ==
LOC: RAD 13:56
PROVIDERS: ATTEND Internal Medicine
DX: G31.89 Other specified degenerative diseases of nervous system (principal); G93.49 Other encephalopathy
CPT/HCPCS: 70450

== ENCOUNTER → 2018-05-17 | Outpatient (CLI) | payer MEDICARE ==
[~2018-05-17] MED LIST changes: +AMLO5TAB7 PO
--- NOTE | 2018-05-17 10:28 | Diagnostic Imaging Report ---
INDICATION: Left knee popping. TIME OF EXAMINATION: 10:01 AM. TECHNIQUE: Three views of the left knee were obtained. FINDINGS: The alignment is normal. The joint spaces are well-maintained. The articular surfaces are smooth. No fracture, dislocation, or effusion is seen. There are femoral/popliteal vascular calcifications present. IMPRESSION: No acute bony abnormality is detected. Dictated by: Dictated on workstation # [id number]
== END ==
LOC: RAD 09:17
PROVIDERS: ATTEND Orthopaedic Surgery
DX: M17.12 Unilateral primary osteoarthritis, left knee (principal)
CPT/HCPCS: 73562

== ENCOUNTER → 2018-12-27 | Outpatient (CLI) | payer MEDICARE ==
[~2018-12-27] MED LIST changes: -AMLO5TAB7 PO; +AMLO5TAB9 PO; -RIVA20TA PO; +RIVA20TA2 PO
== END ==
LOC: CARD 11:26
PROVIDERS: ATTEND Internal Medicine Interventional Cardiology
DX: I48.2 Chronic atrial fibrillation (principal); I25.10 Atherosclerotic heart disease of native coronary artery without angina pectoris; I50.20 Unspecified systolic (congestive) heart failure; I08.0 Rheumatic disorders of both mitral and aortic valves; Z95.0 Presence of cardiac pacemaker
CPT/HCPCS: 93306

== ENCOUNTER 2019-09-27 05:52 | Outpatient (CLI) | payer MEDICARE ==
[~2019-09-27] VITALS: Ht 185.5 cm; Wt 93.2 kg
[~2019-09-27 05:52] MED LIST changes: -METO-370 PO; +METO50TA7 PO; +SIMV10TA26 PO
== END 2019-09-27 11:01 | disposition home or self-care (01) ==
LOC: PREOP 05:52
PROVIDERS: ATTEND Surgery
DX: Z01.818 Encounter for other preprocedural examination (principal)

== ENCOUNTER 2019-09-28 11:50 | Day surgery (SDC) | payer MEDICARE ==
[2019-09-28] VITALS (17 sets, daily range): BP systolic 107–152; BP diastolic 56–75
[~2019-09-28] VITALS: Ht 185.5 cm; Wt 93.2 kg
[~2019-09-28 11:50] MED LIST changes: +NS IV 500 ML 500 ML ONE
[2019-09-28] MEDS ORDERED: NS IV 500 ML 500 ML IV PRN (11:59)
[2019-09-28] MEDS ORDERED: fentaNYL INJECTION 100 MCG/2 ML AMP IVP ONE (12:00)
[2019-09-28] MEDS ORDERED: LIDOCAINE JELLY 2% 6 ML SYRINGE MM PRN (12:00)
--- NOTE | 2019-09-28 12:18 | Conscious Sedation/ASA ---
Conscious Sedation Pre-Proced Time 12:00 ASA Score 2 For ASA 3 and 4: Consider anesthesia and medical clearance. Also, for patients with a history of failed moderate sedation consider anesthesia. Airway Lungs Heart ASA score ASA 1: a normal healthy patient ASA 2: a patient with a mild systemic disease (mid diabetes, controlled hypertension, obesity ASA 3: a patient with a severe systemic disease that limits activity (angina, COPD, prior Myocardial infarction) ASA 4: a patient with an incapacitating disease that is a constant threat to life (CHF, renal failure) ASA 5: a moribund patient not expected to survive 24 hrs. (ruptured aneurysm) ASA 6: a declared brain- patient whose organs are being harvested. For emergent operations, add the letter E after the classification Mallampati Classification Grade 2 Sedation Plan Analgesia, Amnesia, Plan communicated to team members, Discussed options with patient/fam, Discussed risks with patient/fam The patient is an appropriate candidate to undergo the planned procedure, sedation, and anesthesia. The patient immediately re-assessed prior to indication. PHU MATHUR MD Sep 28, 2019 12:18
--- NOTE | 2019-09-28 12:19 | Progress Note-Pre Operative ---
Pre-Operative Progress Note H&P Reviewed The H&P was reviewed, patient examined and no changes noted. Date Seen by Provider: Sep 28, 2019 Time Seen by Provider: 12:00 Date H&P Reviewed: Sep 28, 2019 Time H&P Reviewed: 12:00 Pre-Operative Diagnosis: rectal bleed PHU MATHUR MD Sep 28, 2019 12:19
--- NOTE | 2019-09-28 12:20 | Discharge Inst-Surgical ---
D/C Lap Instructions-KAREEN Follow Up Activity as tolerated High Fiber Diet 25g or more per day Avoid Alcohol, Caffeine, Spicy [place] and Acid foods. Drink 64 fluid oz or more of fluids per day. Symptoms to Report: Fever over 101 degree F, Nausea/Vomiting If any problems/questions: Contact your physician or go to Emergency Room PHU MATHUR MD Sep 28, 2019 12:20
[2019-09-28] MEDS ORDERED: LIDOCAINE JELLY 2% 6 ML SYRINGE ONE (12:24)
[2019-09-28] MEDS ORDERED: MIDAZOLAM 5 MG/5 ML (VERSED) VIAL ONE ×2 (12:25→13:22)
[2019-09-28] MEDS ORDERED: fentaNYL INJECTION 100 MCG/2 ML AMP ONE (12:25)
[2019-09-28] MEDS ORDERED: ONDANSETRON 4 MG/2 ML (SDV) Z0FRAN IVP PRN (12:30)
[2019-09-28] MEDS ORDERED: morphine INJ 10 MG/ML 1ML (SYR OR VIAL) IVP PRN ×2 (12:30)
[2019-09-28] MEDS: MIDAZOLAM 5 MG/5 ML (VERSED) VIAL IV PRN ×5 (13:01→13:22)
--- NOTE | 2019-09-28 14:01 | Progress Note-Post Operative ---
Post-Operative Progess Note Surgeon (s)/Hand Wood Sander (s) Surgeon PHU MATHUR MD Hand Wood Sander: none Pre-Operative Diagnosis rectal bleed Post-Operative Diagnosis chronic stage 2 ext hemorrhoid, stage 3 int hemorrhoidal cushion, moderate sigmoid diverticulosis. Procedure & Operative Findings Date of Procedure 09/28/19 Procedure Performed/Findings Colonoscopy with bx. Rigid proctoscope and hemorroidal banding. Anesthesia Type cs Estimated Blood Loss Estimated blood loss (mL): minimal Specimens/Packing Specimens Removed none PHU MATHUR MD Sep 28, 2019 14:00
--- NOTE | 2019-09-28 18:18 | OPERATIVE REPORT ---
DATE OF SERVICE: 09/28/2019 ATTENDING PRIMARY CARE PHYSICIAN: Edilberto Epps DO PREOPERATIVE DIAGNOSIS: Rectal bleeding. POSTOPERATIVE DIAGNOSES: Chronic stage II external and internal hemorrhoids with one irritated internal hemorrhoidal cushion slightly larger. Moderate sigmoid diverticulosis. The remainder of the colon and rectum were normal. There were no polyps or any neoplasms identified. PROCEDURE: Colonoscopy. Rigid proctoscopy and internal hemorrhoidal banding. SURGEON: Phu Mathur MD. ANESTHESIA: Conscious sedation. ESTIMATED BLOOD LOSS: Minimal. FINDINGS: Same as postoperative diagnoses. DISPOSITION: The patient tolerated the procedure well. INDICATIONS: The patient is an 88-year-old male known to us. In 2017, he had a 2-week history of rectal bleeding. 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 On his most recent visit, he reports intermittent episodes of red blood per rectum. He continues to take Xarelto for his atrial fibrillation as well as cardiac valve replacement. He does not report any major issues with diarrhea nor constipation as well as no family history of colon cancer. DESCRIPTION OF PROCEDURE: The patient was brought to the endoscopy suite, laid in the left lateral decubitus position. After adequate IV pain and sedative medications and conscious sedation anesthesia, digital rectal examination was performed. Mild chronic stage II external and internal hemorrhoids were identified, which were not actively edematous nor inflamed and no bleeding. Normal sphincter tone was felt and there were no palpable masses. Prostate gland was palpable and appeared normal. The endoscope was then intubated to the anus and rectum gently insufflated. The endoscope was then advanced to the valves of [place] of the rectum with no polyps or any neoplasms identified. The endoscope was then advanced through the sigmoid colon where a moderate sigmoid diverticulosis identified. There were no mucosal inflammatory changes to indicate any active diverticulitis as well as no signs of any bleeding. The endoscope was then advanced through the remainder of the descending, transverse and ascending colon to the cecum. These segments were normal. There were no polyps or any neoplasms identified as well as no active bleeding sources. The endoscope was then slowly withdrawn while taking a second look and suctioning of residual air with no additional findings. We then proceeded with a rigid proctoscopy. There was again chronic stage II external and internal hemorrhoids; however, there was one slightly enlarged and slightly edematous internal hemorrhoidal cushion. This was banded under direct visualization. The proctoscope was then removed. The patient tolerated the procedure well. We will recommend the necessary lifestyle and diet accommodation including a high-fiber diet, adding a fiber supplement to equal or exceeded 30 grams daily and to make sure the stools are always soft and no straining upon defecation. Job ID: [id number] DocumentID: [id number] Dictated Date: 09/28/2019 13:47:57 Sharepoint Consultant Date: 09/28/2019 18:17:10 Dictated By: PHU MATHUR MD
== END 2019-09-28 14:41 | disposition home or self-care (01) ==
LOC: ENDO 11:50
PROVIDERS: ATTEND Surgery
DX: K62.5 Hemorrhage of anus and rectum (principal); K64.4 Residual hemorrhoidal skin tags; K64.1 Second degree hemorrhoids; K57.30 Diverticulosis of large intestine without perforation or abscess without bleeding; I25.10 Atherosclerotic heart disease of native coronary artery without angina pectoris; I25.2 Old myocardial infarction; I48.91 Unspecified atrial fibrillation; I10 Essential (primary) hypertension; E78.00 Pure hypercholesterolemia, unspecified; G47.33 Obstructive sleep apnea (adult) (pediatric); Z79.01 Long term (current) use of anticoagulants; Z85.46 Personal history of malignant neoplasm of prostate; Z95.2 Presence of prosthetic heart valve; Z90.89 Acquired absence of other organs; Z79.899 Other long term (current) drug therapy; Z87.891 Personal history of nicotine dependence; Z80.0 Family history of malignant neoplasm of digestive organs

== ENCOUNTER → 2019-12-15 | Outpatient (CLI) | payer MEDICARE ==
[~2019-12-15] MED LIST changes: -NS IV 500 ML 500 ML ONE
--- NOTE | 2019-12-15 15:07 | Diagnostic Imaging Report ---
PROCEDURE: CT lumbar spine without contrast. TECHNIQUE: Multiple contiguous axial images were obtained through the lumbar spine without the use of intravenous contrast. Sagittal and coronal reformations were then performed. Auto Exposure Controls were utilized during the CT exam to meet ALARA standards for radiation dose reduction. INDICATION: Back injury in 1957. Low back and right leg pain. COMPARISON: CT lumbar spine without contrast 08/14/2015. FINDINGS: There are 5 lumbar-type vertebral bodies. Moderate right apex lumbar curvature. No substantial anterior or retrolisthesis. Vertebral body heights are preserved. No fractures identified. Mild diffuse degenerative endplate changes. No evidence of high-grade spinal canal stenosis on soft tissue windows. The visualized pelvis is intact. Advanced atherosclerotic calcifications. IMPRESSION: 1. Mild interval progression of spondylotic changes which remain mild. High-grade spinal canal stenosis is evident on soft tissue windows. 2. No acute CT findings in the lumbar spine. Dictated by: Dictated on workstation # [id number]
== END ==
LOC: RAD 12:26
PROVIDERS: ATTEND Internal Medicine
DX: M99.03 Segmental and somatic dysfunction of lumbar region (principal); M46.06 Spinal enthesopathy, lumbar region; M48.061 Spinal stenosis, lumbar region without neurogenic claudication; M47.816 Spondylosis without myelopathy or radiculopathy, lumbar region
CPT/HCPCS: 72131

== ENCOUNTER → 2020-10-12 | Outpatient (CLI) | payer MEDICARE ==
[~2020-10-12] MED LIST changes: +AMLO-250 PO; -AMLO5TAB9 PO; +ISOS60TA63 PO; -LISI-556 PO; +LISI-729 PO; +WARF4TAB3 PO; -WARF4TAB70 PO
--- NOTE | 2020-10-12 10:54 | Diagnostic Imaging Report ---
EXAM: Modified barium swallow INDICATION: Dysphagia This study was performed in the presence of the speech pathologist, Mamta. FINDINGS: The patient was given barium in different substances to swallow. This included honey, nectar, thin barium, barium in applesauce, barium on banana, barium on a cracker and barium in ground meat. The patient was able swallow the materials without difficulty and there is no aspiration or penetration. However, there did seem to considerable residual contrast within the vallecula and the patient was slow to clear this contrast. IMPRESSION: 1. There is no evidence for aspiration or penetration. 2. There is considerable residual contrast within the vallecula. The patient was unable to clear this contrast without some effort. Dictated by: Dictated on workstation # [id number]
== END ==
LOC: RAD 09:41
PROVIDERS: ATTEND Internal Medicine
DX: R13.19 Other dysphagia (principal)
CPT/HCPCS: 74230

== ENCOUNTER 2021-04-12 15:10 | Day surgery (SDC) | payer MEDICARE ==
[~2021-04-12] VITALS: Ht 182.9 cm; Wt 87.3 kg
[2021-04-12] VITALS (10 sets, daily range): BP systolic 125–148; BP diastolic 66–91
[~2021-04-12 15:10] MED LIST changes: -LISI2.5T PO; +LISI2.5T13 PO
[2021-04-12] MEDS ORDERED: BACITRACIN OINTMENT 28 GM TUBE ONE (15:34)
[2021-04-12] MEDS ORDERED: LIDOCAINE/EPI 2% 1:100,00 (XYLOCAINE) 20 ML VIAL ONE (15:34)
[2021-04-12] MEDS ORDERED: ceFAZolin 2 GM IV Premixed 50 ML ONE (15:43)
--- NOTE | 2021-04-12 15:43 | Progress Note-Pre Operative ---
Pre-Operative Progress Note H&P Reviewed The H&P was reviewed, patient examined and no changes noted. Date Seen by Provider: Apr 12, 2021 Time Seen by Provider: 15:00 Date H&P Reviewed: Apr 12, 2021 Time H&P Reviewed: 15:15 Pre-Operative Diagnosis: right submandibular abcess, submental abcess, right lateral space abcess. MAYDA LIGHT DDS Apr 12, 2021 15:43
[2021-04-12] MEDS ORDERED: LACTATED RINGERS 1,000 ML IV PRN (15:45)
[2021-04-12] MEDS ORDERED: HYDROcodone/APAP 7.5MG-325 MG/15 ML (LORTAB) UDC PO PRN (15:45)
[2021-04-12] MEDS ORDERED: ceFAZolin 2 GM IV Premixed 50 ML IV NR (15:45)
[2021-04-12] MEDS ORDERED: KETAMINE SYRINGE 50 MG/5 ML SYRINGE ONE (15:51)
[2021-04-12] MEDS ORDERED: MIDAZOLAM 2 MG/2 ML (VERSED) VIAL ONE (15:51)
[2021-04-12] MEDS ORDERED: ROPIVACAINE 5MG/ML 30ML VIAL ONE (15:58)
[2021-04-12] MEDS ORDERED: fentaNYL INJ 100 MCG/2 ML AMP ONE (16:09)
[2021-04-12] MEDS ORDERED: morphine INJ 10 MG/ML 1ML (SYR OR VIAL) ONE (16:09)
[2021-04-12] MEDS ORDERED: ONDANSETRON 4 MG/2 ML (SDV) Z0FRAN ONE (16:10)
[2021-04-12] MEDS ORDERED: LIDOCAINE PF 2% 5 ML (XYLOCAINE) VIAL ONE (16:35)
[2021-04-12] MEDS ORDERED: LIDOCAINE 2% 20 ML (XYLOCAINE) VIAL ONE (16:35)
[2021-04-12] MEDS ORDERED: GLYCOPYRROLATE 0.2 MG/ML (ROBINUL) 2 ML VIAL ONE (16:35)
[2021-04-12] MEDS ORDERED: SUCCINYLCHOLINE INJ 100 MG/5 ML SYR/VIAL ONE (16:36)
[2021-04-12] MEDS ORDERED: proPOfol 200 MG/20 ML (DIPRIVAN) VIAL IV ONE (16:36)
[2021-04-12] MEDS: SENNA W/DOCUSATE (SENOKOT S) TABLET PO SCH (20:54)
[2021-04-12] MEDS: ceFAZolin INJECTION 1,000 MG in WATER (STERILE) FOR INJECTION 10 ML IV SCH (23:27)
[2021-04-13 04:00] VITALS: BP 133/79
[2021-04-13] MEDS: ceFAZolin INJECTION 1,000 MG in WATER (STERILE) FOR INJECTION 10 ML IV SCH ×3 (07:17→23:28)
[2021-04-13 08:00] VITALS: BP 127/69
[2021-04-13] MEDS: SENNA W/DOCUSATE (SENOKOT S) TABLET PO SCH ×3 (08:58→20:35)
[2021-04-13] MEDS ORDERED: RIVAROXABAN 20 MG TABLET (XARELTO) PO SCH (09:30)
[2021-04-13 12:00] VITALS: BP 124/62
--- NOTE | 2021-04-13 12:38 | Anesthesia-General Post-Op ---
General Patient Condition Mental Status/LOC: Same as Preop Cardiovascular: Satisfactory Nausea/Vomiting: Absent Respiratory: Satisfactory Pain: Controlled Complications: Absent Post Op Complications Complications None Follow Up Care/Instructions Patient Instructions None needed. Anesthesia/Patient Condition Patient Condition Patient is doing well, no complaints, stable vital signs, no apparent adverse anesthesia problems. No complications reported per nursing. STEFAN GUADARRAMA CRNA Apr 13, 2021 12:38
[2021-04-13 16:00] VITALS: BP 145/86
[2021-04-13 20:00] VITALS: BP 136/70
[2021-04-14 00:27] VITALS: BP 128/67
[2021-04-14 04:24] VITALS: BP 122/72
[2021-04-14] MEDS: ceFAZolin INJECTION 1,000 MG in WATER (STERILE) FOR INJECTION 10 ML IV SCH (06:36)
[2021-04-14 07:21] VITALS: BP 157/82
[2021-04-14] MEDS ORDERED: RIVAROXABAN 20 MG TABLET (XARELTO) PO SCH (09:00)
--- NOTE | 2021-05-02 02:57 | OPERATIVE REPORT ---
DATE OF SERVICE: 04/12/2021 SURGEON: Dr. Mayda Light. SERVICE: Oral maxillofacial surgery. PREOPERATIVE DIAGNOSIS: Right submandibular abscess, submental abscess as well as right lateral pharyngeal space abscess. POSTOPERATIVE DIAGNOSIS: Right submandibular abscess, submental abscess as well as right lateral pharyngeal space abscess. PROCEDURE: Incision and drainage of right submandibular abscess, I and D of right submental abscess and incision and drainage of right lateral pharyngeal space abscess as well as removal of tooth #32. COMPUTER SYSTEMS AUDITOR: Maddy Santana. ANESTHESIA: General endotracheal. BLOOD LOSS: Minimal. FLUIDS: 1100 mL of crystalloid. Instrument, needle and sponge count were correct x2. HISTORY OF PRESENT ILLNESS AND INDICATIONS FOR PROCEDURE: The patient is an 89-year-old white male, who presented upon referral from Dr. Dima Mercedes's office. He has had swelling and pain associated with his right posterior mandible. Upon examination, he has a retained and carious tooth #32. Upon evaluation, he had submental swelling, elevated tongue position, right submandibular abscess and then upon digital examination, I could feel a right lateral pharyngeal space abscess. Due to his health history, he is again 89 years old. He has a pacemaker. He has had two myocardial infarctions and he is on several cardiac medicines. Subsequently, he was admitted and then posted urgently and we took him to the operating room straight away from after admission. DESCRIPTION OF PROCEDURE: The patient was taken to the operating room and placed on the operating table with appropriate monitors placed and anesthesia was induced via orotracheal intubation without difficulty. Once this was secured, the surgeon left the room, scrubbed, returned, donned sterile gowns and gloves and prepped and draped the patient in the usual standard sterile fashion. After depositing local anesthesia in and around the ____ mandibular block in the submental region and subcuticular region and then approximately 2 inches inferior to the inferior border of the mandible, this allowed to take effect. I then used a #15 blade to incise through the skin and subcuticular tissue in the submandibular region and we were able to achieve drainage of purulent and serosanguineous fluid and then I extended this and under the inferior border of the mandible, I was able to drain the lateral pharyngeal space. I then made a second incision in the submental region and after excising through the skin and subcuticular tissue, I was able to use a curved hemostat and entered into the submental space and floor of the mouth and again was able to gain purulent drainage of the abscess. After this, I was able to identify tooth #32, which was impacted carious tooth in his posterior right mandibular region and then this was after elevating a full thickness flap, I was able to identify and then removed any interfering bone. I then luxated and removed the tooth without difficulty. We also gained drainage in that region also. After this, we placed Jayant drains in the submental and submandibular space. These were sewn in with 3-0 silk and then we copiously irrigated with normal saline with a ____ weak concentration of hydrogen peroxide extensively. We had also taken cultures for Gram stain, anaerobic and aerobic studies. After this, this completed our procedure. We placed drain dressings and a sterile dressing. We made sure we had adequate hemostasis intraorally. We had placed a throat pack and then this was removed prior to extubation. He was then extubated after breathing spontaneously and then transported to the recovery room where he was assessed to have stable vital signs, breathing spontaneously with a pulse ox of 99%. Job ID: [id number] DocumentID: [id number] Dictated Date: 05/01/2021 16:04:06 Dust Sampler Date: 05/02/2021 01:28:24 Dictated By: MAYDA LIGHT DDS
== END 2021-04-14 08:25 | disposition home or self-care (01) ==
LOC: SDC 15:10 → 4TH 17:59 → SDC 04-14 08:25
PROVIDERS: ATTEND Specialist
DX: L02.01 Cutaneous abscess of face (principal); K12.2 Cellulitis and abscess of mouth; J39.1 Other abscess of pharynx; I25.10 Atherosclerotic heart disease of native coronary artery without angina pectoris; I10 Essential (primary) hypertension; G47.33 Obstructive sleep apnea (adult) (pediatric); Z99.89 Dependence on other enabling machines and devices; Z79.899 Other long term (current) drug therapy
CPT/HCPCS: 87070; 87075; 87076; 87077; 87081; 87185; 87186; 87205

== ENCOUNTER 2021-07-25 05:37 | Outpatient (CLI) | payer MEDICARE ==
[~2021-07-25] VITALS: Ht 185.4 cm; Wt 90.3 kg
[~2021-07-25 05:37] MED LIST changes: -LISI-729 PO; +LISI5TAB20 PO
[2021-07-25] MEDS ORDERED: DONE10TA41 PO (09:24)
== END 2021-07-25 10:23 | disposition home or self-care (01) ==
LOC: PREOP 05:37
PROVIDERS: ATTEND Surgery
DX: Z01.818 Encounter for other preprocedural examination (principal)

== ENCOUNTER → 2021-07-26 | Day surgery (SDC) | payer MEDICARE ==
[~2021-07-26] VITALS: Ht 185 cm; Wt 90.0 kg
[~2021-07-26] MED LIST changes: +DONE10TA41 PO; +LACTATED RINGERS 1,000 ML IV PRN; +LACTATED RINGERS 1,000 ML IV STA; +LIDOCAINE JELLY 2% 6 ML SYRINGE MM PRN; +ONDANSETRON 4 MG (ZOFRAN) ORAL DISSOLVE TAB PO PRN; +ONDANSETRON 4 MG/2 ML (SDV) Z0FRAN IVP PRN; +proPOfol 200 MG/20 ML (DIPRIVAN) VIAL IV ONE
--- NOTE | 2021-07-26 12:35 | Progress Note-Pre Operative ---
Pre-Operative Progress Note H&P Reviewed The H&P was reviewed, patient examined and no changes noted. Date Seen by Provider: Jul 26, 2021 Time Seen by Provider: 12:30 Date H&P Reviewed: Jul 26, 2021 Time H&P Reviewed: 12:30 Pre-Operative Diagnosis: rectal bleed PHU MATHUR MD Jul 26, 2021 12:35
--- NOTE | 2021-07-26 12:36 | Discharge Inst-Surgical ---
D/C Lap Instructions-KAREEN Follow Up Activity as tolerated High Fiber Diet 25g or more per day Avoid Alcohol, Caffeine, Spicy [place] and Acid foods. Drink 64 fluid oz or more of fluids per day. Symptoms to Report: Fever over 101 degree F, Nausea/Vomiting If any problems/questions: Contact your physician or go to Emergency Room PHU MATHUR MD Jul 26, 2021 12:36
[2021-07-26 12:40] VITALS: BP 140/91
[2021-07-26 13:45] VITALS: BP 97/54
[2021-07-26 13:50] VITALS: BP 99/56
[2021-07-26 13:55] VITALS: BP 100/59
--- NOTE | 2021-07-26 13:56 | Progress Note-Post Operative ---
Post-Operative Progess Note Surgeon (s)/Produce Assistant (s) Surgeon PHU MATHUR MD Produce Assistant: none Pre-Operative Diagnosis rectal bleed Post-Operative Diagnosis acute on chronic stage 2-3 int hemorrhoidal cushion. Procedure & Operative Findings Date of Procedure 07/26/21 Procedure Performed/Findings rigid proctoscope and hemorrhoidal banding. Anesthesia Type mac Estimated Blood Loss Estimated blood loss (mL): minimal Specimens/Packing Specimens Removed none PHU MATHUR MD Jul 26, 2021 13:56
[2021-07-26 14:41] VITALS: BP 132/84
--- NOTE | 2021-07-26 14:46 | Anesthesia-General Post-Op ---
MAC Patient Condition Mental Status/LOC: Same as Preop Cardiovascular: Satisfactory Nausea/Vomiting: Absent Respiratory: Satisfactory Pain: Controlled Complications: Absent Post Op Complications Complications None Follow Up Care/Instructions Patient Instructions None needed. Anesthesiology Discharge Order Discharge Order Patient was doing well after the procedure, no complaints, stable vital signs, no apparent adverse anesthesia problems. JUSTINA NATH DO Jul 26, 2021 14:46
--- NOTE | 2021-07-26 19:01 | OPERATIVE REPORT ---
DATE OF SERVICE: 07/26/2021 ATTENDING PRIMARY CARE PHYSICIAN: Edilberto Epps DO PREOPERATIVE DIAGNOSIS: Recurrent rectal bleeding, likely secondary to internal hemorrhoids on anticoagulation. POSTOPERATIVE DIAGNOSIS: Chronic stage between 2 and 3 internal hemorrhoidal cushion with irritation and no active bleeding. PROCEDURE: Rigid proctoscopy and hemorrhoidal banding. SURGEON: Phu Mathur MD. ANESTHESIA: Monitored anesthesia care. ESTIMATED BLOOD LOSS: Minimal. FINDINGS: Same as postoperative diagnoses. DISPOSITION: The patient tolerated the procedure well. INDICATIONS: The patient is an 89-year-old male known to us. We had seen him in 05/2017 for a 2-week history of rectal bleeding, which was bright red in color and would state minimal amount at times; however, more significant on others. He did have a myocardial infarction in 06/2016, which required a stent and a cardiac valve replacement in 08/2016 and since that time, he has been on Xarelto. We had tried our medical management; however, he continued to have bleeding and in 09/2019, he underwent a rigid proctoscopy as well as internal hemorrhoidal banding. We had also done a full colonoscopy on him on 05/2017 where a moderate sigmoid diverticulosis was identified. In the past several days, he has had episodes of rectal bleeding from the rectum; however, does have issues with constipation on an intermittent basis. His bleeding is likely secondary to internal hemorrhoidal bleeding. DESCRIPTION OF PROCEDURE: The patient was brought to the endoscopy suite, laid in the left lateral decubitus position. After adequate IV pain and sedative medications and monitored anesthesia care, a digital rectal examination was performed. There were no palpable masses. Prostate gland was palpable and appeared normal. After the anal sphincters were relaxed, we then placed a rigid proctoscope visualizing an internal hemorrhoidal cushion, which appeared to be irritated between the stage II and III with no active bleeding; however, the likely culprit previously. This was banded with two bands with visualization of good hemostasis. No other potential bleeding lesions were identified. The rigid proctoscope was then removed. The patient did not show any discomfort during the banding process indicating we were above the dentate line. The patient tolerated the procedure well. He will experience some sloughing and some bleeding on an intermittent basis due to the banding; however, he may restart his Xarelto and he needs to proceed with a high fiber diet to promote soft stools on a daily basis and to prevent the episodes of bleeding. Job ID: [id number] DocumentID: [id number] Dictated Date: 07/26/2021 13:49:29 Day Care Aide Date: 07/26/2021 18:43:18 Dictated By: PHU MATHUR MD MTDD
== END ==
LOC: ENDO 12:27
PROVIDERS: ATTEND Surgery
DX: K62.5 Hemorrhage of anus and rectum (principal); K64.2 Third degree hemorrhoids; I25.10 Atherosclerotic heart disease of native coronary artery without angina pectoris; I10 Essential (primary) hypertension; I48.91 Unspecified atrial fibrillation; I25.2 Old myocardial infarction; E78.5 Hyperlipidemia, unspecified; G47.33 Obstructive sleep apnea (adult) (pediatric); J44.9 Chronic obstructive pulmonary disease, unspecified; E78.00 Pure hypercholesterolemia, unspecified; Z85.46 Personal history of malignant neoplasm of prostate; Z99.89 Dependence on other enabling machines and devices; Z79.899 Other long term (current) drug therapy; Z95.1 Presence of aortocoronary bypass graft; Z87.891 Personal history of nicotine dependence; Z90.89 Acquired absence of other organs; Z80.0 Family history of malignant neoplasm of digestive organs

== ENCOUNTER → 2021-09-19 | Outpatient (CLI) | payer MEDICARE ==
[~2021-09-19] MED LIST changes: -LACTATED RINGERS 1,000 ML IV PRN; -LACTATED RINGERS 1,000 ML IV STA; -LIDOCAINE JELLY 2% 6 ML SYRINGE MM PRN; -ONDANSETRON 4 MG (ZOFRAN) ORAL DISSOLVE TAB PO PRN; -ONDANSETRON 4 MG/2 ML (SDV) Z0FRAN IVP PRN; -proPOfol 200 MG/20 ML (DIPRIVAN) VIAL IV ONE
--- NOTE | 2021-09-19 15:16 | Diagnostic Imaging Report ---
PROCEDURE: CT left upper extremity without contrast. TECHNIQUE: Multiple contiguous axial images were obtained through the left upper extremity without the use of intravenous contrast. Auto Exposure Controls were utilized during the CT exam to meet ALARA standards for radiation dose reduction. INDICATION: Pain and decreased range of motion in the left arm and shoulder. COMPARISON: None. FINDINGS: No acute fracture is seen in the left shoulder. Alignment appears normal. There are mild degenerative changes in the left shoulder. There is mild superior migration of the humeral head. There is an os acromiale. There appears to be mild atrophy of the supraspinatus muscle. There is moderate fluid extending into the superior subscapularis recess. No soft tissue masses are seen. There is no lymphadenopathy. There is motion artifact in the left lung. There is calcific atherosclerosis. A left-sided pacemaker is noted. IMPRESSION: 1. Mild degenerative changes in the left shoulder with no acute fracture seen. 2. Os acromiale. 3. Mild atrophy of the supraspinatus muscle, may be due to a rotator cuff tear. Dictated by: Dictated on workstation # [id number]
== END ==
LOC: RAD 13:45
DX: M19.012 Primary osteoarthritis, left shoulder (principal); M62.512 Muscle wasting and atrophy, not elsewhere classified, left shoulder
CPT/HCPCS: 73200